=== PATIENT | male | born 1935 | race Asian ===

== ENCOUNTER 2019-03-09 01:45 | Inpatient (IN) | payer MEDICARE, MEDICAID ==
[~2019-03-09] VITALS: Ht 172.7 cm; Wt 66.8 kg
[2019-03-09] MEDS ORDERED: POTASSIUM CHLO20 ME3 PO (01:51)
[2019-03-09] MEDS ORDERED: ATORVASTATIN CA20 MG ORAL (01:51)
[2019-03-09] MEDS ORDERED: COLCRYS0.6 M1 PO (01:51)
[2019-03-09] MEDS ORDERED: LEVOCETIRIZINE D5 MG ORAL (01:51)
[2019-03-09] MEDS ORDERED: CLOPIDOGREL75 MG ORAL (01:51)
[2019-03-09] MEDS ORDERED: MONTELUKAST SOD10 MG ORAL (01:51)
[2019-03-09] MEDS ORDERED: FUROSEMIDE40 MG ORAL (01:51)
[2019-03-09] MEDS ORDERED: BENICAR40 MG ORAL (01:51)
[2019-03-09] MEDS ORDERED: FLOMAX0.4 MG ORAL (01:51)
[2019-03-09] MEDS ORDERED: LYRICA75 M1 ORAL (01:51)
[2019-03-09 01:55] VITALS: BP 128/75
--- NOTE | 2019-03-09 01:55 | NUR ---
ER Nurse Note: Pt COLIN from home c/o ALOC. 911 was called by daughter d/t change in status. Per daughter, pt was DC from [facility] for pnumonia on 03/06. Pt a&ox1 to name, VSS, on non-rebreather mask, O2 sat >92%. All safety measures met; will continue to montior.
[2019-03-09 02:22] LABS: HEMATOCRIT 43.7 % (42.0-52.0); HEMOGLOBIN 14.1 G/DL (14.2-18.0); MEAN CORPUSCULAR VOLUME 94 FL (80-99); PLATELET COUNT 260 K/UL (150-450); RED BLOOD COUNT 4.63 M/UL (4.70-6.10); RED CELL DISTRIBUTION WIDTH 13.9 % (11.6-14.8); WHITE BLOOD COUNT 13.7 K/UL (4.8-10.8)
[2019-03-09 02:34] LABS: ANION GAP 5 mmol/L (5-15); BLOOD UREA NITROGEN 32 mg/dL (7-18); CALCIUM 8.5 MG/DL (8.5-10.1); CARBON DIOXIDE 34 MMOL/L (21-32); CHLORIDE 98 MMOL/L (98-107); CREATININE 1.7 MG/DL (0.55-1.30); POTASSIUM 5.1 MMOL/L (3.5-5.1); SODIUM 137 MMOL/L (136-145)
[2019-03-09 02:35] LABS: INR 0.9 (0.9-1.1)
[2019-03-09 02:49] LABS: ALANINE AMINOTRANSFERASE 45 U/L (12-78); ALBUMIN 3.1 G/DL (3.4-5.0); ALBUMIN/GLOBULIN RATIO 0.9 (1.0-2.7); ALKALINE PHOSPHATASE 181 U/L (46-116); ASPARTATE AMINO TRANSFERASE 46 U/L (15-37); BILIRUBIN,TOTAL 0.4 MG/DL (0.2-1.0); CKMB 0.8 NG/ML (0.0-3.6); CREATINE KINASE 32 U/L (26-308)
[2019-03-09] MEDS ORDERED: cefTRIAXone 1 GM in NS 55 ML IVPB ONE (03:00)
--- NOTE | 2019-03-09 03:20 | NUR ---
ER Nurse Note: All orders completed per ERMD orders. Pt is resting, comfortable, no signs of distress. Pt on BiPaP, tolerating well. Pt denies SOB, n/v, dizziness. Mental status improving, able to make complete phrases. Pt cleaned, swabs collected. Family at bedside; daughter able to provide detailed information on pt status. All safety measures met; will continue to montior.
[2019-03-09] MEDS ORDERED: CODEINE-GUAIFE120 ML PO (03:29)
[2019-03-09] MEDS ORDERED: ZITHROMAX250 MG ORAL (03:30)
[2019-03-09] MEDS ORDERED: AUGMENTIN 875-1 EAC1 ORAL (03:30)
--- NOTE | 2019-03-09 03:50 | Emergency Room Report ---
History of Present Illness General Chief Complaint: Altered Level of Consciousness Source: Patient, Family Member, EMS Present Illness HPI Patient initially presents with reports of altered mental status Family reports that the patient was recently discharged home from another hospital They report diagnosis of pneumonia Earlier this evening prior to arrival patient had an episode where he appeared to be less responsive to the family His breathing appeared to be more abnormal and was brought in by paramedics Family at this time reports that the patient appears to be at his baseline mentation and his breathing appears to be improved patient himself complains of cramping to the left hand Denies any chest pain Denies any headache Allergies: Coded Allergies: No Known Allergies (Unverified , 03/09/19) Patient History Past Medical History: see triage record Pertinent Family History: none Reviewed Nursing Documentation: PMH: Agreed; PSxH: Agreed Nursing Documentation-PMH Past Medical History: No History, Except For Hx Hypertension: Yes Review of Systems All Other Systems: negative except mentioned in HPI Physical Exam Vital Signs Date Time Temp Pulse Resp B/P (MAP) Pulse Ox O2 Delivery O2 Flow Rate FiO2 03/09/19 01:43 97.0 99 18 128/75 (92) 96 Room Air 03/09/19 02:25 30 Sp02 EP Interpretation: reviewed, normal General Appearance: mild distress - Appears short of breath Head: normocephalic, atraumatic Eyes: bilateral eye PERRL, bilateral eye EOMI ENT: hearing grossly normal, normal pharynx, TMs + canals normal, uvula midline Neck: full range of motion, supple, no meningismus, no bony tend Respiratory: no retraction, no accessory muscle use, other - Mild distress tachypneic bilateral crackles Cardiovascular #1: normal peripheral pulses, regular rate, rhythm, no gallop, no JVD, no murmur Gastrointestinal: normal bowel sounds, non tender, soft, no mass, no organomegaly, non-distended, no guarding, no hernia, no pulsatile mass, no rebound Genitourinary: no CVA tenderness Musculoskeletal: other - Patient moving extremities equally equal dumper bilaterally Neurologic: oriented x3, responsive, motor strength/tone normal, sensory intact Psychiatric: mood/affect normal Skin: no rash, other - Edema bilateral lower extremity Lymphatic: normal inspection, no adenopathy Procedures Critical Care Time Critical Care Time 50 minutes for multiple re-evaluations initial critical presentation concern for respiratory failure not including any procedural time Medical Decision Making Diagnostic Impression: Primary Impression: Respiratory distress Additional Impression: CHF (congestive heart failure) ER Course Patient is a fairly complex patient with multiple differential to consideration including but not limited to cardiac cardiopulmonary and vascular emergencies Patient has done significantly better on BiPAP Chest x-ray reveals abnormal findings difficult to consider CHF versus infiltrate versus other Patient is afebrile However is treated aggressively upon arrival Patient does not meet criteria for thrombolytic therapy his mentation appears to be at baseline Per the family at this time Patient's stroke score is also low And given the rapid improvement does not meet criteria CT head does not show any acute disease Patient is critical however improved from initial arrival and will be admitted to higher level of care Labs Test 03/09/19 01:55 03/09/19 02:01 White Blood Count 13.7 K/UL (4.8-10.8) Red Blood Count 4.63 M/UL (4.70-6.10) Hemoglobin 14.1 G/DL (14.2-18.0) Hematocrit 43.7 % (42.0-52.0) Mean Corpuscular Volume 94 FL (80-99) Mean Corpuscular Hemoglobin 30.6 PG (27.0-31.0) Mean Corpuscular Hemoglobin Concent 32.4 G/DL (32.0-36.0) Red Cell Distribution Width 13.9 % (11.6-14.8) Platelet Count 260 K/UL (150-450) Mean Platelet Volume 7.5 FL (6.5-10.1) Neutrophils (%) (Auto) % (45.0-75.0) Lymphocytes (%) (Auto) % (20.0-45.0) Monocytes (%) (Auto) % (1.0-10.0) Eosinophils (%) (Auto) % (0.0-3.0) Basophils (%) (Auto) % (0.0-2.0) Prothrombin Time 9.9 SEC (9.30-11.50) Prothromb Time International Ratio 0.9 (0.9-1.1) Activated Partial Thromboplast Time 29 SEC (23-33) Sodium Level 137 MMOL/L (136-145) Potassium Level 5.1 MMOL/L (3.5-5.1) Chloride Level 98 MMOL/L (98-107) Carbon Dioxide Level 34 MMOL/L (21-32) Anion Gap 5 mmol/L (5-15) Blood Urea Nitrogen 32 mg/dL (7-18) Creatinine 1.7 MG/DL (0.55-1.30) Estimat Glomerular Filtration Rate mL/min (>60) Glucose Level 185 MG/DL (74-106) Lactic Acid Level 1.90 mmol/L (0.4-2.0) Calcium Level 8.5 MG/DL (8.5-10.1) Total Bilirubin 0.4 MG/DL (0.2-1.0) Aspartate Amino Transf (AST/SGOT) 46 U/L (15-37) Alanine Aminotransferase (ALT/SGPT) 45 U/L (12-78) Alkaline Phosphatase 181 U/L (46-116) Total Creatine Kinase 32 U/L (26-308) Creatine Kinase MB 0.8 NG/ML (0.0-3.6) Creatine Kinase MB Relative Index 2.5 Troponin I 0.079 ng/mL (0.000-0.056) Pro-B-Type Natriuretic Peptide 7047 pg/mL (0-125) Total Protein 6.7 G/DL (6.4-8.2) Albumin 3.1 G/DL (3.4-5.0) Globulin 3.6 g/dL Albumin/Globulin Ratio 0.9 (1.0-2.7) Lipase 84 U/L (73-393) Arterial Blood pH 7.252 (7.350-7.450) Arterial Blood Partial Pressure CO2 66.3 mmHg (35.0-45.0) Arterial Blood Partial Pressure O2 310.2 mmHg (75.0-100.0) Arterial Blood HCO3 28.6 mmol/L (22.0-26.0) Arterial Blood Oxygen Saturation 99.2 % (95-100) Arterial Blood Base Excess -0.1 (-2-2) Sharif Test Positive Rhythm Strip Diag. Results EP Interpretation: yes Rate: 88 Rhythm: NSR, no PVC's, no ectopy Chest X-Ray Diagnostic Results Chest X-Ray Diagnostic Results : Chest X-Ray Ordered: Yes # of Views/Limited/Complete: 1 View Indication: Shortness of Breath EP Interpretation: Yes Interpretation: no effusion, other - Bilateral patchy markings, right side worse than left consider infiltrate versus congestion Impression: Other - Bilateral patchy markings, consider infiltrate versus CHF Electronically Signed by: Sharan Mondragon DO CT/MRI/US Diagnostic Results CT/MRI/US Diagnostic Results : Impression CT headCT HEAD Without Contrast: Motion degraded study. Negative for mass, mass-effect or intracranial hemorrhage. Last Vital Signs Date Time Temp Pulse Resp B/P (MAP) Pulse Ox O2 Delivery O2 Flow Rate FiO2 03/09/19 02:25 105 22 100 Full Face 30 03/09/19 01:55 97.0 128/75 Status: improved Disposition: ADMITTED INPATIENT Condition: Critical Referrals: NON PHYSICIAN (PCP) Sharan Mondragon DO Mar 09, 2019 03:50
[2019-03-09 04:03] LABS: APPEARANCE,URINE CLEAR; BILIRUBIN, URINE NEGATIVE (NEGATIVE); COLOR,URINE PALE YELLOW; GLUCOSE, URINE (UA) NEGATIVE (NEGATIVE); KETONES,URINE NEGATIVE (NEGATIVE); LEUKOCYTE ESTERASE ,URINE NEGATIVE (NEGATIVE); NITRITE,URINE NEGATIVE (NEGATIVE); PH,URINE 5 (4.5-8.0); PROTEIN,URINE NEGATIVE (NEGATIVE); UROBILINOGEN,URINE NORMAL MG/DL (0.0-1.0)
[2019-03-09 04:09] VITALS: BP 122/76
[2019-03-09 04:15] VITALS: BP 152/86
--- NOTE | 2019-03-09 04:15 | NUR ---
NURSE NOTES: Patient arrived to SDU Room 239-2 via gurney under the care of DR. MCCAULEY. Accompanied by 2 ED staff members.Patient is awake alert orientedx4. on BiPAP / rate 12 FIO2 50% with full face mask. no leaks. o2 sating is 96-98% with no respiratory distress noted. ST with HR of 105 . Afebrile. BP 152/86. Denies any pain at this time.skin body assessment done. skin intact. Family at bed side. given hospital orientation.call light in reach. bed in low and locked. initiated safety precaution. will continue to monitor.
[2019-03-09 04:20] VITALS: BP 122/76
--- NOTE | 2019-03-09 04:20 | NUR ---
ER Nurse Note: Report given to NIKOLE Vargas in [place] for continuty of care. All orders completed per ERMD orders. Pt denies pain, VSS, a&ox3/4. No diffculty voiding, uses urinal at bedside, no skin breakdown. All belongings taken with family. Pt transfered with RT; BiPaP at pt side.
--- NOTE | 2019-03-09 07:50 | NUR ---
HAND-OFF: Report given to JOHANN SHAH RN. Stable on BiPAP.
[2019-03-09] MEDS: Lyrica 75mg cap ORAL SCH ×3 (09:00→21:20)
[2019-03-09] MEDS: Tamsulosin 0.4mg cap ORAL SCH (09:26)
[2019-03-09] MEDS: Heparin 5000 units/ml inj SUBQ SCH ×2 (09:29→21:18)
--- NOTE | 2019-03-09 10:34 | Diagnostic Imaging Report ---
Indications: Altered mental status for one day Technique: Spiral acquisitions obtained through the brain. Angled axial and coronal 5 x 5 mm slices were reconstructed. Total dose length product 1583.7 mGycm. CTDI vol(s) 70.38 mGy. Dose reduction achieved using automated exposure control Comparison: None. Findings: There is age-related enlargement of the ventricles and extra axial CSF spaces. No acute intracranial hemorrhage nor edema. No mass effect nor midline shift. There is evidence of an old cortical infarct in the right frontal region. This has an associated dystrophic calcification The visualized orbits are unremarkable. The calvarium is intact. There is minimal right frontal sinus disease. There is a left maxillary sinus air-fluid level. The mastoids are clear. 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 The CT scanner at [facility] is accredited by the [employer] and the scans are performed using protocols designed to limit radiation exposure to as low as reasonably achievable to attain images of sufficient resolution adequate for diagnostic evaluation.
[2019-03-09] MEDS: guaiFENesin 100mg/5ml Liq ud ORAL PRN (11:17)
--- NOTE | 2019-03-09 13:01 | Diagnostic Imaging Report ---
Indication: Shortness of breath for one day Technique: One view of the chest Comparison: none Findings: There is extensive interstitial and airspace disease on the right, and somewhat less extensive interstitial disease throughout the left lung. Pleural calcifications are seen on the right. There is blunting of the bilateral costophrenic sulci, right greater than left. The heart is enlarged. The aorta is tortuous and quite ectatic, possibly aneurysmal Impression: Bilateral right greater than left interstitial and airspace infiltrates versus edema. Bilateral costophrenic angle blunting, could indicate pleural effusions Chronic appearing right-sided pleural calcifications. 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
--- NOTE | 2019-03-09 13:04 | NUR ---
CASE MANAGEMENT:REVIEW 83 YR OLD FEMALE BIBA FROM HOME CC: ALOC. SOB PMH: RECENTLY DISCHARGED FROM [facility] ER FOR PNA SI:ALOC. RESPIRATORY DISTRESS. SEPSIS 97.0 99 18 128/75 92% ON NON REBREATHER WBC+13.7 TROPONIN(+) 0.079 PH-7.252 PCO2+66.3 IS: PLACED ON BIPAP IV LASIX IV ROCEPHIN CT HEAD CXR : TO STEP DOWN UNIT INTERQUAL CRITERIA MET
[2019-03-09 16:00] VITALS: BP 110/64
--- NOTE | 2019-03-09 16:00 | NUR ---
NURSE NOTES: received pt from Sharon RN, awake, alert, oriented, vital signs stable, no co pain, no SOB, Bipap 12/5, FIO2 30%, skin warm and dry to touch, intact, at bedside, bed in low position, call light within reach.
[2019-03-09] MEDS: Montelukast 10mg tablet ORAL SCH (17:19)
--- NOTE | 2019-03-09 18:35 | NUR ---
RESPIRATORY NOTE: Received pt on 4L NC. Bedside RN just called to place back pt on BiPAP. Pt now back on BiPAP 07/30, backup rate 12, 35%. Pt placed on a Full Face mask, skin intact, no redness/breakdowns noted. Foam tape applied on pt's forehead/cheeks/chin to prevent mask irritations. Pt is alert/awake, follows commands. Family at bedside. B/S drake. rhonchi/diminished, nonproductive cough. BiPAP plugged into red outlet, alarms on & audible. Pt in no apparent distress at this time. Will continue plan of care.
--- NOTE | 2019-03-09 19:21 | NUR ---
HAND-OFF: Report given to ANDRIY AGUSTIN.
--- NOTE | 2019-03-09 19:30 | NUR ---
NURSE NOTES: Received Pt is resting on the bed and slight agitated and forgetful. Family stay at bedside. Pt trying to remove BiPAP. Remind Pt do not remove BIPAP and to use call light for help. But pt didn't cooperate at this time. Addendum: 03/10/19 at 0029 by NADEGE ASHRAF RN RN On BiPAP 16/6 and FiO2 35% and SaO2 99% noted. IV site intact and no sign of infiltration noted. On Tele monitor with SR. Placed fall precaution. Will continue to care plan.
[2019-03-09 20:00] VITALS: BP 153/81
[2019-03-10] VITALS: BP 117/70
--- NOTE | 2019-03-10 03:45 | History and Physical Report ---
DATE OF ADMISSION: 03/09/2019 CHIEF COMPLAINT: Respiratory failure, CHF. HISTORY OF PRESENT ILLNESS: The patient is an 83-year-old female. She has a history of congestive heart failure, hypertension, hyperlipidemia, and gout. She presented from home with complaints of shortness of breath. The patient apparently recently hospitalized in an outside hospital for pneumonia. In the emergency room, she was in respiratory distress and eventually placed on a BiPAP. She had x-ray evidence of CHF on x-ray. ABG showed respiratory acidosis. She also had an elevated troponin of 0.079 and natriuretic peptide level was 7000. She has been currently continued on BiPAP. She has received a dose of Lasix and is now admitted for further evaluation and care. PAST MEDICAL HISTORY: As above. PAST SURGICAL HISTORY: Unknown. CURRENT MEDICATIONS: Reconciled and reviewed. ALLERGIES: None. FAMILY HISTORY: Unknown. SOCIAL HISTORY: There is no known history of tobacco, ethanol, or drugs. REVIEW OF SYSTEMS: Unobtainable as the patient is confused. PHYSICAL EXAMINATION: VITAL SIGNS: Temperature 98, pulse 90, respirations 16, and blood pressure 122/76. GENERAL: The patient is well developed, in no apparent distress. HEART: Regular rate and rhythm. LUNGS: Significant diminished breath sounds bilaterally. ABDOMEN: Soft, nontender, and nondistended. EXTREMITIES: Without clubbing, cyanosis, or edema. LABORATORY DATA: White count 13, hemoglobin 14, hematocrit 43, and platelet count of 260. Coags are normal. Sodium 137, potassium 5, chloride 98, bicarb 34, BUN 32, and creatinine 0.7. Troponin was 0.079. Natriuretic peptide level was 7000. According to the ER, x-ray shows CHF. ASSESSMENT: This is an 83-year-old female with a history of hypertension, recent pneumonia and hyperlipidemia, admitted with complaints of shortness of breath secondary to congestive heart failure exacerbation, cannot rule out possible underlying pneumonia. PLAN: IV diuretic therapy. Close monitoring of renal function and electrolytes. Empiric antibiotic therapy to cover for pneumonia. Pulmonary and Cardiology consultations will be obtained. Maintain BiPAP, wean as able. Otherwise, continue outpatient cardiac regimen. We will trend the patient's troponin and check an echo. Luis Forrester M.D. DR: DIANA JOB#: [id number] CC:
[2019-03-10 04:00] VITALS: BP 128/66
[2019-03-10] MEDS: Lyrica 75mg cap ORAL SCH ×3 (05:41→22:00)
[2019-03-10 06:27] LABS: ALANINE AMINOTRANSFERASE 34 U/L (12-78); ALBUMIN 2.6 G/DL (3.4-5.0); ALBUMIN/GLOBULIN RATIO 0.8 (1.0-2.7); ALKALINE PHOSPHATASE 138 U/L (46-116); ANION GAP 6 mmol/L (5-15); ASPARTATE AMINO TRANSFERASE 31 U/L (15-37); BILIRUBIN,TOTAL 0.5 MG/DL (0.2-1.0); BLOOD UREA NITROGEN 30 mg/dL (7-18); CALCIUM 8.4 MG/DL (8.5-10.1); CARBON DIOXIDE 35 MMOL/L (21-32); CHLORIDE 98 MMOL/L (98-107); CREATININE 1.3 MG/DL (0.55-1.30); POTASSIUM 3.7 MMOL/L (3.5-5.1); SODIUM 139 MMOL/L (136-145)
--- NOTE | 2019-03-10 06:34 | NUR ---
RESPIRATORY NOTE: Received pt on Bipap 07/30, back up rate 12-35% FiO2. Pt is tolerating well with the Bipap. Pt is awake, alert, resting comfortably in the bed, no SOB or resp distress noted.No redness or skin breakdown noted. Foam tapes on cheeks, chin and forehead. Family member at bed side. Alarms are set and audible, Bipap is plugged into the red outlet, ambu bag is at bedside. Will continue to monitor pt.
--- NOTE | 2019-03-10 07:20 | NUR ---
HAND-OFF: Report given to NIKOLE Mann. Pt is resting on the bed and no sign of acute distress noted.
[2019-03-10 08:00] VITALS: BP 155/79
[2019-03-10] MEDS: Heparin 5000 units/ml inj SUBQ SCH ×2 (08:15→20:38)
[2019-03-10] MEDS: Tamsulosin 0.4mg cap ORAL SCH (08:15)
--- NOTE | 2019-03-10 08:15 | NUR ---
NURSE NOTES: received pt in the bed, awake, alert,vital signs stable, pt on Bipap 12/, FIO2 30%, no SOB, skin warm and dry to touch, intact, yellow clear urine, tolerate diet well, at bedside, bed in low position, call light within reach.
--- NOTE | 2019-03-10 08:35 | Consultation ---
Consult Note Consult Note 83-year-old female presents with increase in shortness of breath. The patient apparently recently hospitalized in an outside hospital for pneumonia and respiratory distress. She was in respiratory distress and placed on a BiPAP. CXR suggestive of CHF and pulmonary edema. Patient with acute respiratory acidosis. She also had an elevated troponin of 0.079 and natriuretic peptide level was 7000. Patient admitted and started on diuresis. I was called to assist with pulmonary care and BIPAP management. PAST MEDICAL HISTORY: congestive heart failure, hypertension, hyperlipidemia, and gout PAST SURGICAL HISTORY: Unknown. CURRENT MEDICATIONS: Reconciled and reviewed. ALLERGIES: reviewed. FAMILY HISTORY: Unknown. SOCIAL HISTORY: There is no known history of tobacco, ethanol, or drugs. SNF patient REVIEW OF SYSTEMS: Unable PHYSICAL EXAMINATION: NAD on oxygen GENERAL: The patient is well developed, in no apparent distress. HEART: Regular rate and rhythm. without MRG LUNGS: reduced breath sounds bilaterally. some rhonchi ABDOMEN: Soft, nontender, and nondistended. no HSM EXTREMITIES: Without clubbing, cyanosis, or edema. NEURO: nonfocal and confused Labs Test 03/09/19 01:55 03/09/19 02:01 03/09/19 03:00 03/09/19 03:55 White Blood Count 13.7 K/UL (4.8-10.8) Red Blood Count 4.63 M/UL (4.70-6.10) Hemoglobin 14.1 G/DL (14.2-18.0) Hematocrit 43.7 % (42.0-52.0) Mean Corpuscular Volume 94 FL (80-99) Mean Corpuscular Hemoglobin 30.6 PG (27.0-31.0) Mean Corpuscular Hemoglobin Concent 32.4 G/DL (32.0-36.0) Red Cell Distribution Width 13.9 % (11.6-14.8) Platelet Count 260 K/UL (150-450) Mean Platelet Volume 7.5 FL (6.5-10.1) Neutrophils (%) (Auto) % (45.0-75.0) Lymphocytes (%) (Auto) % (20.0-45.0) Monocytes (%) (Auto) % (1.0-10.0) Eosinophils (%) (Auto) % (0.0-3.0) Basophils (%) (Auto) % (0.0-2.0) Prothrombin Time 9.9 SEC (9.30-11.50) Prothromb Time International Ratio 0.9 (0.9-1.1) Activated Partial Thromboplast Time 29 SEC (23-33) Sodium Level 137 MMOL/L (136-145) Potassium Level 5.1 MMOL/L (3.5-5.1) Chloride Level 98 MMOL/L (98-107) Carbon Dioxide Level 34 MMOL/L (21-32) Anion Gap 5 mmol/L (5-15) Blood Urea Nitrogen 32 mg/dL (7-18) Creatinine 1.7 MG/DL (0.55-1.30) Estimat Glomerular Filtration Rate mL/min (>60) Glucose Level 185 MG/DL (74-106) Lactic Acid Level 1.90 mmol/L (0.4-2.0) Calcium Level 8.5 MG/DL (8.5-10.1) Total Bilirubin 0.4 MG/DL (0.2-1.0) Aspartate Amino Transf (AST/SGOT) 46 U/L (15-37) Alanine Aminotransferase (ALT/SGPT) 45 U/L (12-78) Alkaline Phosphatase 181 U/L (46-116) Total Creatine Kinase 32 U/L (26-308) Creatine Kinase MB 0.8 NG/ML (0.0-3.6) Creatine Kinase MB Relative Index 2.5 Troponin I 0.079 ng/mL (0.000-0.056) Pro-B-Type Natriuretic Peptide 7047 pg/mL (0-125) Total Protein 6.7 G/DL (6.4-8.2) Albumin 3.1 G/DL (3.4-5.0) Globulin 3.6 g/dL Albumin/Globulin Ratio 0.9 (1.0-2.7) Lipase 84 U/L (73-393) Arterial Blood pH 7.252 (7.350-7.450) 7.342 (7.350-7.450) Arterial Blood Partial Pressure CO2 66.3 mmHg (35.0-45.0) 53.7 mmHg (35.0-45.0) Arterial Blood Partial Pressure O2 310.2 mmHg (75.0-100.0) 65.9 mmHg (75.0-100.0) Arterial Blood HCO3 28.6 mmol/L (22.0-26.0) 28.5 mmol/L (22.0-26.0) Arterial Blood Oxygen Saturation 99.2 % (95-100) 90.8 % (95-100) Arterial Blood Base Excess -0.1 (-2-2) 1.7 (-2-2) Sharif Test Positive Positive Urine Color Pale yellow Urine Appearance Clear Urine pH 5 (4.5-8.0) Urine Specific Levan 1.015 (1.005-1.035) Urine Protein Negative (NEGATIVE) Urine Glucose (UA) Negative (NEGATIVE) Urine Ketones Negative (NEGATIVE) Urine Blood Negative (NEGATIVE) Urine Nitrite Negative (NEGATIVE) Urine Bilirubin Negative (NEGATIVE) Urine Urobilinogen Normal MG/DL (0.0-1.0) Urine Leukocyte Esterase Negative (NEGATIVE) Test 03/09/19 07:39 03/09/19 08:40 03/10/19 03:50 Arterial Blood pH 7.287 (7.350-7.450) 7.356 (7.350-7.450) Arterial Blood Partial Pressure CO2 58.9 mmHg (35.0-45.0) 47.9 mmHg (35.0-45.0) Arterial Blood Partial Pressure O2 147.5 mmHg (75.0-100.0) 81.9 mmHg (75.0-100.0) Arterial Blood HCO3 27.5 mmol/L (22.0-26.0) 26.2 mmol/L (22.0-26.0) Arterial Blood Oxygen Saturation 98.1 % (95-100) 94.7 % (95-100) Arterial Blood Base Excess -0.2 (-2-2) 0.2 (-2-2) Sharif Test Positive Positive Sodium Level 139 MMOL/L (136-145) Potassium Level 3.7 MMOL/L (3.5-5.1) Chloride Level 98 MMOL/L (98-107) Carbon Dioxide Level 35 MMOL/L (21-32) Anion Gap 6 mmol/L (5-15) Blood Urea Nitrogen 30 mg/dL (7-18) Creatinine 1.3 MG/DL (0.55-1.30) Estimat Glomerular Filtration Rate mL/min (>60) Glucose Level 89 MG/DL (74-106) Calcium Level 8.4 MG/DL (8.5-10.1) Total Bilirubin 0.5 MG/DL (0.2-1.0) Aspartate Amino Transf (AST/SGOT) 31 U/L (15-37) Alanine Aminotransferase (ALT/SGPT) 34 U/L (12-78) Alkaline Phosphatase 138 U/L (46-116) Total Protein 5.8 G/DL (6.4-8.2) Albumin 2.6 G/DL (3.4-5.0) Globulin 3.2 g/dL Albumin/Globulin Ratio 0.8 (1.0-2.7) ASSESSMENT: hypertension, ho pneumonia hyperlipidemia, congestive heart failure exacerbation respiratory failure, acute toxic metabolic encephalopathy hypoxemia pleural calcifications PLAN care as is diurese oxygen BIPAP and assess off repeat ABG repeat CXR hold on antibiotics aspiration precautions impression, plan, and exam edited and reviewed in detail care discussed with Adrian Akers MD Mar 10, 2019 08:35
--- NOTE | 2019-03-10 08:40 | NUR ---
RESPIRATORY NOTE: Pt off Bipap to eat breakfast per NIKOLE Mercer. Pt is on 3L 32%FiO2, saturates at 95%. Pt is stable, no SOB or resp distress noted. Per Dr. Saleem, Bipap changed to prn, and keep pt on 3L NC 32% FiO2. NIKOLE Mercer made aware. Will follow up with the order and continue to monitor pt.
--- NOTE | 2019-03-10 09:26 | NUR ---
RESPIRATORY NOTE: Put pt back on Bipap due to high PCO2 in ABG result. New foam tapes applied. Pt wants full face mask. No redness noted upon applying tape to pt's chin, cheeks and fore head.Family member at bedside. Pt is stable, no SOB or resp distress. Will continue to monitor pt. Addendum: 03/10/19 at 0931 by Jessenia Lehman RT NIKOLE Mann made aware
[2019-03-10 12:00] VITALS: BP 118/70
--- NOTE | 2019-03-10 12:47 | Diagnostic Imaging Report ---
Indication: Shortness of breath Technique: One view of the chest Comparison: 03/09/2019 Findings: Right lung interstitial and airspace disease, predominantly in the mid and upper lung, appears unchanged. Pleural calcifications on the right are unchanged. Right-sided costophrenic angle blunting is unchanged. Mild interstitial changes on the left appears stable. There is some atelectasis or scarring at the left lung base. The heart remains borderline enlarged. The aorta is tortuous and ectatic, possibly aneurysmal Impression: Unchanged, over one day, findings as above.
--- NOTE | 2019-03-10 14:00 | NUR ---
NURSE NOTES: pt up on chair, o2 3L, tolerate well, Bipap now PRN, vital signs stable, continue monitoring.
[2019-03-10 16:00] VITALS: BP 132/72
--- NOTE | 2019-03-10 16:58 | General Progress Note ---
Assessment/Plan Problem List: (1) Hospital acquired PNA ICD Codes: J18.9 - Pneumonia, unspecified organism; Y95 - Nosocomial condition SNOMED: 342959819 (2) CHF (congestive heart failure), NYHA class IV ICD Codes: I50.9 - Heart failure, unspecified SNOMED: 646613856, 057151123 (3) Sepsis ICD Codes: A41.9 - Sepsis, unspecified organism SNOMED: 46226660 (4) Respiratory distress ICD Codes: R06.03 - Acute respiratory distress SNOMED: 739616028 (5) Altered level of consciousness ICD Codes: R40.4 - Transient alteration of awareness SNOMED: 7073937 Status: stable, progressing Assessment/Plan: a/ chf pna sepsis p/ iv lasix to po iv abx follow up cultures monitor cxr Subjective ROS Limited/Unobtainable: No Constitutional: Reports: malaise, weakness HEENT: Reports: no symptoms Cardiovascular: Reports: no symptoms Respiratory: Reports: cough, shortness of breath Gastrointestinal/Abdominal: Reports: no symptoms Genitourinary: Reports: no symptoms Neurologic/Psychiatric: Reports: no symptoms Endocrine: Reports: no symptoms Hematologic/Lymphatic: Reports: no symptoms Allergies: Coded Allergies: No Known Allergies (Unverified , 03/09/19) All Systems: reviewed and negative except above Subjective no events. off bipap eating breakfast. no fevers or chills. Objective Last 24 Hour Vital Signs Date Time Temp Pulse Resp B/P (MAP) Pulse Ox O2 Delivery O2 Flow Rate FiO2 03/10/19 16:00 80 03/10/19 16:00 Bi-pap 03/10/19 14:09 99.4 03/10/19 12:00 82 03/10/19 12:00 99.4 83 19 118/70 (86) 97 03/10/19 12:00 Bi-pap 03/10/19 12:00 35 03/10/19 11:03 86 22 95 03/10/19 10:42 85 23 96 Full Face 35 03/10/19 09:26 86 15 96 Full Face 35 03/10/19 08:40 87 18 95 03/10/19 08:00 35 03/10/19 08:00 98.8 91 18 155/79 (104) 96 03/10/19 08:00 Bi-pap 03/10/19 08:00 84 03/10/19 06:31 79 16 95 Full Face 35 03/10/19 05:04 88 24 97 Full Face 35 03/10/19 04:00 98.0 87 19 128/66 (86) 97 03/10/19 04:00 Bi-pap 03/10/19 04:00 35 03/10/19 04:00 83 03/10/19 03:15 80 19 96 Full Face 35 03/10/19 00:57 95 21 98 Full Face 35 03/10/19 00:00 Bi-pap 03/10/19 00:00 35 03/10/19 00:00 98.4 87 19 117/70 (86) 98 03/10/19 00:00 85 03/09/19 23:03 90 19 97 Full Face 35 03/09/19 20:55 91 24 98 Full Face 35 03/09/19 20:00 98.0 95 19 153/81 (105) 97 03/09/19 20:00 35 03/09/19 20:00 Bi-pap 03/09/19 19:48 95 03/09/19 18:32 89 19 94 Full Face 35 03/09/19 16:56 87 17 95 Full Face 35 Intake and Output 03/09/19 03/10/19 19:00 07:00 Intake Total 800 ml 120 ml Output Total 751 ml 1600 ml Balance 49 ml -1480 ml Intake Oral 800 ml 120 ml Output Urine Total 750 ml 1600 ml Stool Total 1 ml # Voids 2 Laboratory Tests 03/10/19 03:50: Sodium Level 139, Potassium Level 3.7, Chloride Level 98, Carbon Dioxide Level 35H, Anion Gap 6, Blood Urea Nitrogen 30H, Creatinine 1.3, Estimat Glomerular Filtration Rate , Glucose Level 89, Calcium Level 8.4L, Total Bilirubin 0.5, Aspartate Amino Transf (AST/SGOT) 31, Alanine Aminotransferase (ALT/SGPT) 34, Alkaline Phosphatase 138H, Total Protein 5.8L, Albumin 2.6L, Globulin 3.2, Albumin/Globulin Ratio 0.8L 03/10/19 09:00: Arterial Blood pH 7.427, Arterial Blood Partial Pressure CO2 54.6H, Arterial Blood Partial Pressure O2 70.9L, Arterial Blood HCO3 35.2H, Arterial Blood Oxygen Saturation 93.4L, Arterial Blood Base Excess 8.9H, Sharif Test Positive Height (Feet): 5 Height (Inches): 8.00 Weight (Pounds): 171 General Appearance: WD/WN, alert Neck: supple Cardiovascular: normal rate, regular rhythm Respiratory/Chest: chest wall non-tender, lungs clear, normal breath sounds, no respiratory distress, no accessory muscle use Abdomen: normal bowel sounds, non tender, soft, no organomegaly, no mass Edema: no edema noted Arm (L), no edema noted Arm (R), no edema noted Leg (L), no edema noted Leg (R), no edema noted Pedal (L), no edema noted Pedal (R), no edema noted Generalized 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
[2019-03-10] MEDS ORDERED: NS 275ml ONE (17:30)
[2019-03-10] MEDS ORDERED: Tubing IV Secondary IV ONE (17:30)
[2019-03-10] MEDS: Montelukast 10mg tablet ORAL SCH (17:32)
[2019-03-10] MEDS ORDERED: Vancomycin 1.25gm Premix IVPB ONE (18:00)
[2019-03-10] MEDS: Piperacillin/Tazobactam 3.375 GM in NS 110 ML IVPB SCH (18:14)
[2019-03-10] MEDS ORDERED: CREON DR 36,001 EACH PO (18:32)
[2019-03-10] MEDS ORDERED: DEEP SEA44 ML NS (18:35)
[2019-03-10] MEDS ORDERED: COMBIVENT RESPIM4 GM IH (18:38)
[2019-03-10] MEDS ORDERED: FLECTOR1 EACH TP (18:41)
[2019-03-10] MEDS ORDERED: FLUTICASONE PRO16 G1 NS (18:43)
[2019-03-10] MEDS ORDERED: PROMETHAZINE-C118 M1 ORAL (18:45)
[2019-03-10] MEDS ORDERED: CIALIS5 MG PO (18:46)
--- NOTE | 2019-03-10 19:21 | NUR ---
HAND-OFF: Report given to CHIKA AGUSTIN.
--- NOTE | 2019-03-10 19:22 | NUR ---
NURSE NOTES: Received patient from Mackenzie Macias RN, Patient is awake, alert, on NC 3L, VSS, and no acute distress. Family member, Young, at bed side. Bed at its lowest position, call light in reach and X3 bed rails are up.
[2019-03-10 20:00] VITALS: BP 123/65
[2019-03-11] VITALS: BP 126/70
--- NOTE | 2019-03-11 | NUR ---
NURSE NOTES: Patient sleeping well with family at bedside. Will continue to monitor.
[2019-03-11 04:00] VITALS: BP 133/73
--- NOTE | 2019-03-11 04:10 | NUR ---
NURSE NOTES: Marcial from Lab informed me that patient has active VRE rectum. Will inform MD in the AM and endorse to morning nurse.
[2019-03-11] MEDS: Piperacillin/Tazobactam 3.375 GM in NS 110 ML IVPB SCH ×3 (05:06→21:15)
[2019-03-11] MEDS: Vancomycin 750mg/NS 275ml IVPB SCH ×4 (05:06→17:15)
[2019-03-11] MEDS: Lyrica 75mg cap ORAL SCH ×3 (05:07→21:21)
[2019-03-11 05:34] LABS: ANION GAP 4 mmol/L (5-15); BLOOD UREA NITROGEN 28 mg/dL (7-18); CALCIUM 8.7 MG/DL (8.5-10.1); CARBON DIOXIDE 35 MMOL/L (21-32); CHLORIDE 98 MMOL/L (98-107); CREATININE 1.1 MG/DL (0.55-1.30); POTASSIUM 3.4 MMOL/L (3.5-5.1); SODIUM 137 MMOL/L (136-145)
--- NOTE | 2019-03-11 07:20 | NUR ---
HAND-OFF: Report given to Mackenzie Macias RN.
--- NOTE | 2019-03-11 07:58 | General Progress Note ---
Assessment/Plan Problem List: (1) Hospital acquired PNA ICD Codes: J18.9 - Pneumonia, unspecified organism; Y95 - Nosocomial condition SNOMED: 632667786 (2) CHF (congestive heart failure), NYHA class IV ICD Codes: I50.9 - Heart failure, unspecified SNOMED: 168006448, 409857758 (3) Sepsis ICD Codes: A41.9 - Sepsis, unspecified organism SNOMED: 11089039 (4) Respiratory distress ICD Codes: R06.03 - Acute respiratory distress SNOMED: 310920611 (5) Altered level of consciousness ICD Codes: R40.4 - Transient alteration of awareness SNOMED: 5499052 Status: stable, progressing Assessment/Plan: a/ chf pna sepsis p/ lasix iv abx follow up cultures monitor cxr replace k d/w Subjective ROS Limited/Unobtainable: No Constitutional: Reports: malaise, weakness HEENT: Reports: no symptoms Cardiovascular: Reports: no symptoms Respiratory: Reports: cough, shortness of breath Gastrointestinal/Abdominal: Reports: no symptoms Genitourinary: Reports: no symptoms Neurologic/Psychiatric: Reports: no symptoms Endocrine: Reports: no symptoms Hematologic/Lymphatic: Reports: no symptoms Allergies: Coded Allergies: No Known Allergies (Unverified , 03/09/19) All Systems: reviewed and negative except above Subjective no events. off bipap currently. at the bedside. feels pt is doing better. Objective Last 24 Hour Vital Signs Date Time Temp Pulse Resp B/P (MAP) Pulse Ox O2 Delivery O2 Flow Rate FiO2 03/11/19 04:00 98.5 82 20 133/73 (93) 98 03/11/19 04:00 Nasal Cannula 3.0 03/11/19 03:31 79 03/11/19 00:00 Nasal Cannula 3.0 03/11/19 00:00 99.0 83 20 126/70 (88) 97 03/10/19 23:20 79 03/10/19 21:12 97 Nasal Cannula 3.0 32 03/10/19 20:00 98.5 84 20 123/65 (84) 98 03/10/19 20:00 89 03/10/19 20:00 Nasal Cannula 3.0 03/10/19 16:00 80 03/10/19 16:00 Bi-pap 03/10/19 16:00 98.8 84 19 132/72 (92) 99 03/10/19 14:09 99.4 03/10/19 13:00 97 Nasal Cannula 3.0 03/10/19 12:00 82 03/10/19 12:00 99.4 83 19 118/70 (86) 97 03/10/19 12:00 Bi-pap 03/10/19 12:00 35 03/10/19 11:03 86 22 95 03/10/19 10:42 85 23 96 Full Face 35 03/10/19 09:26 86 15 96 Full Face 35 03/10/19 08:40 87 18 95 03/10/19 08:00 35 03/10/19 08:00 98.8 91 18 155/79 (104) 96 03/10/19 08:00 Bi-pap 03/10/19 08:00 84 Intake and Output 03/10/19 03/11/19 19:00 07:00 Intake Total 320 ml 377.2500 ml Output Total 300 ml 500 ml Balance 20 ml -122.7500 ml Intake Oral 320 ml 50 ml IV Total 327.2500 ml Output Urine Total 300 ml 500 ml # Voids 3 4 # Bowel Movements 1 5 Laboratory Tests 03/10/19 09:00: Arterial Blood pH 7.427, Arterial Blood Partial Pressure CO2 54.6H, Arterial Blood Partial Pressure O2 70.9L, Arterial Blood HCO3 35.2H, Arterial Blood Oxygen Saturation 93.4L, Arterial Blood Base Excess 8.9H, Sharif Test Positive 03/11/19 03:15: Sodium Level 137, Potassium Level 3.4L, Chloride Level 98, Carbon Dioxide Level 35H, Anion Gap 4L, Blood Urea Nitrogen 28H, Creatinine 1.1, Estimat Glomerular Filtration Rate , Glucose Level 97, Calcium Level 8.7 Height (Feet): 5 Height (Inches): 8.00 Weight (Pounds): 163 Objective General Appearance: WD/WN, alert Neck: supple Cardiovascular: normal rate, regular rhythm Respiratory/Chest: chest wall non-tender, lungs clear, normal breath sounds, no respiratory distress, no accessory muscle use Abdomen: normal bowel sounds, non tender, soft, no organomegaly, no mass Edema: no edema noted Arm (L), no edema noted Arm (R), no edema noted Leg (L), no edema noted Leg (R), no edema noted Pedal (L), no edema noted Pedal (R), no edema noted Generalized Neurologic: group burner 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
[2019-03-11 08:00] VITALS: BP 131/66
--- NOTE | 2019-03-11 08:10 | NUR ---
NURSE NOTES: received pt in the bed, awake, alert, oriented, vital signs stable, no co pain, no SOB, o2 3l via nasal canula,tolerate well, skin warm and dry to touch, intact, ambulate, at bedside, K 3.4, dr. Forrester aware, bed in low position, call light within reach.
[2019-03-11] MEDS: Tamsulosin 0.4mg cap ORAL SCH (09:05)
[2019-03-11] MEDS: Furosemide 40mg tab ORAL SCH (09:05)
[2019-03-11] MEDS: Heparin 5000 units/ml inj SUBQ SCH ×2 (09:07→21:14)
[2019-03-11 12:00] VITALS: BP 127/68
--- NOTE | 2019-03-11 12:00 | NUR ---
NURSE NOTES: no any distress, vital signs stable, no SOB, continue monitoring.
[2019-03-11] MEDS ORDERED: Tubing IV Secondary IV ONE (15:37)
[2019-03-11] MEDS ORDERED: NS 275ml ONE (15:37)
[2019-03-11 16:00] VITALS: BP 128/73
[2019-03-11] MEDS: Montelukast 10mg tablet ORAL SCH (17:15)
--- NOTE | 2019-03-11 18:00 | Consultation ---
DATE OF CONSULTATION: 03/11/2019 INFECTIOUS DISEASES CONSULTATION CONSULTING PHYSICIAN: Mena Mena M.D. REFERRING PHYSICIAN: Luis Forresetr M.D. REASON FOR CONSULTATION: Pneumonia. HISTORY OF PRESENTING ILLNESS: This is a 83-year-old gentleman with history of congestive heart failure, hypertension, hyperlipidemia, gout, who comes in with shortness of breath. He was at an outside hospital where he was found to be in respiratory distress and was placed on a BiPAP. He had congestive heart failure on the chest x-ray. An Infectious Diseases consultation has now been obtained for possible pneumonia. PAST MEDICAL HISTORY: 1. History of congestive heart failure. 2. Hypertension. 3. Hyperlipidemia. 4. Gout. SOCIAL HISTORY: No history of smoking, alcohol, or drug use. FAMILY HISTORY: Unknown. REVIEW OF SYSTEMS: Unable to obtain currently. MEDICATIONS: As an inpatient, the patient is on Lasix, IV vancomycin, Zosyn, atorvastatin, Restoril, Singulair, guaifenesin, subcutaneous heparin, Plavix, Lyrica, Flomax, clonidine. ALLERGIES: No known drug allergies. PHYSICAL EXAMINATION: VITAL SIGNS: Temperature of 97.7, T-max of 99.4, pulse of 76, respiratory rate 20, blood pressure 131/66, O2 saturation of 98%. HEENT: Pupils equally reactive to light and accommodation. Mouth appears clean without thrush. NECK: Supple. No adenopathy. No JVD. CARDIOVASCULAR: Regular rate and rhythm. No murmurs. LUNGS: Clear to auscultation bilaterally. No crackles. No wheezes. ABDOMEN: Soft and nontender. No organomegaly. EXTREMITIES: No cyanosis, no clubbing, no edema. LABORATORY AND DIAGNOSTIC DATA: White count of 13.7, hemoglobin 14.1, hematocrit 43.7, MCV 94, platelet count of 260. Sodium 137, potassium 3.4, chloride 98, bicarb 35, BUN 28, creatinine 1.1, glucose 97, calcium 8.7, creatinine is 1.7 on 03/09/2019. Total bilirubin 0.5, AST 31, ALT 34, alkaline phosphatase 138, total protein 5.8, albumin 2.6, lipase of 84. UA is showing LE negative. 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 Nasal swab was negative for MRSA. Blood cultures are negative so far. Chest x-ray showing right lung interstitial and air space disease, prominent in the mid and upper lung, some atelectasis in the left lung base noted, chronic right frontal cortical infarct, negative for bleed or mass effect, sinus disease noted. ASSESSMENT: This is an 83-year-old gentleman with history congestive heart failure, hypertension, gout who comes in with shortness of breath and is found to have. 1. Possible aspiration pneumonia. 2. Hypertension. 3. Renal failure is improving. 4. Congestive heart failure. PLAN: 1. Continue IV vancomycin and Zosyn. 2. We will order sputum for Gram stain and culture. 3. We will follow up cultures and adjust antibiotics accordingly. I would like to thank, Dr. Forrester for this consultation. Mena Mena M.D. DR: Amina JOB#: [id number] CC: Luis Forrester M.D.
--- NOTE | 2019-03-11 19:08 | NUR ---
HAND-OFF: Report given to CAROLINA AGUSTIN.
--- NOTE | 2019-03-11 19:10 | NUR ---
NURSE NOTES: Report received from Mackenzie Mercer RN. Observed pt lying in the bed. A/O x4, speaks Tajik, denies any pain. SR with classroom monitor. On 3L with no SOB noted. IV on L AC, intact and patent. Bed in the lowest position. Side rails up x3. Call light within reach. Will continue to monitor.
[2019-03-11 20:00] VITALS: BP 136/71
--- NOTE | 2019-03-11 23:12 | Pulmonology Progress Note ---
Assessment/Plan Assessment/Plan Pulmonary Progress Note 83-year-old female presents with increase in shortness of breath. The patient apparently recently hospitalized in an outside hospital for pneumonia and respiratory distress. She was in respiratory distress and placed on a BiPAP. CXR suggestive of CHF and pulmonary edema. Patient with acute respiratory acidosis. She also had an elevated troponin of 0.079 and natriuretic peptide level was 7000. Patient admitted and started on diuresis. I was called to assist with pulmonary care and BIPAP management. PAST MEDICAL HISTORY: congestive heart failure, hypertension, hyperlipidemia, and gout PHYSICAL EXAMINATION: Vital signs noted NAD on oxygen GENERAL: The patient is well developed, in no apparent distress. HEART: Regular rate and rhythm. without MRG LUNGS: reduced breath sounds bilaterally. some rhonchi ABDOMEN: Soft, nontender, and nondistended. no HSM EXTREMITIES: Without clubbing, cyanosis, or edema. NEURO: nonfocal and confused Labs Noted Test 03/09/19 01:55 03/09/19 02:01 03/09/19 03:00 03/09/19 03:55 White Blood Count 13.7 K/UL (4.8-10.8) Red Blood Count 4.63 M/UL (4.70-6.10) Hemoglobin 14.1 G/DL (14.2-18.0) Hematocrit 43.7 % (42.0-52.0) Mean Corpuscular Volume 94 FL (80-99) Mean Corpuscular Hemoglobin 30.6 PG (27.0-31.0) Mean Corpuscular Hemoglobin Concent 32.4 G/DL (32.0-36.0) Red Cell Distribution Width 13.9 % (11.6-14.8) Platelet Count 260 K/UL (150-450) Mean Platelet Volume 7.5 FL (6.5-10.1) Neutrophils (%) (Auto) % (45.0-75.0) Lymphocytes (%) (Auto) % (20.0-45.0) Monocytes (%) (Auto) % (1.0-10.0) Eosinophils (%) (Auto) % (0.0-3.0) Basophils (%) (Auto) % (0.0-2.0) Prothrombin Time 9.9 SEC (9.30-11.50) Prothromb Time International Ratio 0.9 (0.9-1.1) Activated Partial Thromboplast Time 29 SEC (23-33) Sodium Level 137 MMOL/L (136-145) Potassium Level 5.1 MMOL/L (3.5-5.1) Chloride Level 98 MMOL/L (98-107) Carbon Dioxide Level 34 MMOL/L (21-32) Anion Gap 5 mmol/L (5-15) Blood Urea Nitrogen 32 mg/dL (7-18) Creatinine 1.7 MG/DL (0.55-1.30) Estimat Glomerular Filtration Rate mL/min (>60) Glucose Level 185 MG/DL (74-106) Lactic Acid Level 1.90 mmol/L (0.4-2.0) Calcium Level 8.5 MG/DL (8.5-10.1) Total Bilirubin 0.4 MG/DL (0.2-1.0) Aspartate Amino Transf (AST/SGOT) 46 U/L (15-37) Alanine Aminotransferase (ALT/SGPT) 45 U/L (12-78) Alkaline Phosphatase 181 U/L (46-116) Total Creatine Kinase 32 U/L (26-308) Creatine Kinase MB 0.8 NG/ML (0.0-3.6) Creatine Kinase MB Relative Index 2.5 Troponin I 0.079 ng/mL (0.000-0.056) Pro-B-Type Natriuretic Peptide 7047 pg/mL (0-125) Total Protein 6.7 G/DL (6.4-8.2) Albumin 3.1 G/DL (3.4-5.0) Globulin 3.6 g/dL Albumin/Globulin Ratio 0.9 (1.0-2.7) Lipase 84 U/L (73-393) Arterial Blood pH 7.252 (7.350-7.450) 7.342 (7.350-7.450) Arterial Blood Partial Pressure CO2 66.3 mmHg (35.0-45.0) 53.7 mmHg (35.0-45.0) Arterial Blood Partial Pressure O2 310.2 mmHg (75.0-100.0) 65.9 mmHg (75.0-100.0) Arterial Blood HCO3 28.6 mmol/L (22.0-26.0) 28.5 mmol/L (22.0-26.0) Arterial Blood Oxygen Saturation 99.2 % (95-100) 90.8 % (95-100) Arterial Blood Base Excess -0.1 (-2-2) 1.7 (-2-2) Sharif Test Positive Positive Urine Color Pale yellow Urine Appearance Clear Urine pH 5 (4.5-8.0) Urine Specific Amma 1.015 (1.005-1.035) Urine Protein Negative (NEGATIVE) Urine Glucose (UA) Negative (NEGATIVE) Urine Ketones Negative (NEGATIVE) Urine Blood Negative (NEGATIVE) Urine Nitrite Negative (NEGATIVE) Urine Bilirubin Negative (NEGATIVE) Urine Urobilinogen Normal MG/DL (0.0-1.0) Urine Leukocyte Esterase Negative (NEGATIVE) Test 03/09/19 07:39 03/09/19 08:40 03/10/19 03:50 Arterial Blood pH 7.287 (7.350-7.450) 7.356 (7.350-7.450) Arterial Blood Partial Pressure CO2 58.9 mmHg (35.0-45.0) 47.9 mmHg (35.0-45.0) Arterial Blood Partial Pressure O2 147.5 mmHg (75.0-100.0) 81.9 mmHg (75.0-100.0) Arterial Blood HCO3 27.5 mmol/L (22.0-26.0) 26.2 mmol/L (22.0-26.0) Arterial Blood Oxygen Saturation 98.1 % (95-100) 94.7 % (95-100) Arterial Blood Base Excess -0.2 (-2-2) 0.2 (-2-2) Sharif Test Positive Positive Sodium Level 139 MMOL/L (136-145) Potassium Level 3.7 MMOL/L (3.5-5.1) Chloride Level 98 MMOL/L (98-107) Carbon Dioxide Level 35 MMOL/L (21-32) Anion Gap 6 mmol/L (5-15) Blood Urea Nitrogen 30 mg/dL (7-18) Creatinine 1.3 MG/DL (0.55-1.30) Estimat Glomerular Filtration Rate mL/min (>60) Glucose Level 89 MG/DL (74-106) Calcium Level 8.4 MG/DL (8.5-10.1) Total Bilirubin 0.5 MG/DL (0.2-1.0) Aspartate Amino Transf (AST/SGOT) 31 U/L (15-37) Alanine Aminotransferase (ALT/SGPT) 34 U/L (12-78) Alkaline Phosphatase 138 U/L (46-116) Total Protein 5.8 G/DL (6.4-8.2) Albumin 2.6 G/DL (3.4-5.0) Globulin 3.2 g/dL Albumin/Globulin Ratio 0.8 (1.0-2.7) ASSESSMENT: hypertension, ho pneumonia hyperlipidemia, congestive heart failure exacerbation respiratory failure, acute toxic metabolic encephalopathy hypoxemia pleural calcifications PLAN care as is diurese oxygen BIPAP and assess off repeat ABG repeat CXR hold on antibiotics aspiration precautions impression, plan, and exam edited and reviewed in detail care discussed with RN Subjective ROS Limited/Unobtainable: No Allergies: Coded Allergies: No Known Allergies (Unverified , 03/09/19) Objective Last 24 Hour Vital Signs Date Time Temp Pulse Resp B/P (MAP) Pulse Ox O2 Delivery O2 Flow Rate FiO2 03/11/19 20:00 96 Nasal Cannula 3.0 32 03/11/19 20:00 98.2 76 18 136/71 (92) 98 03/11/19 20:00 76 03/11/19 20:00 Nasal Cannula 3.0 03/11/19 16:00 78 03/11/19 16:00 Nasal Cannula 3.0 03/11/19 16:00 98.4 77 20 128/73 (91) 98 03/11/19 14:39 98.2 03/11/19 12:00 Nasal Cannula 3.0 03/11/19 12:00 98.2 73 18 127/68 (87) 98 03/11/19 12:00 81 03/11/19 08:05 97 Nasal Cannula 3.0 32 03/11/19 08:00 97.7 76 20 131/66 (87) 98 03/11/19 08:00 73 03/11/19 08:00 Nasal Cannula 3.0 03/11/19 04:00 98.5 82 20 133/73 (93) 98 03/11/19 04:00 Nasal Cannula 3.0 03/11/19 03:31 79 03/11/19 00:00 Nasal Cannula 3.0 03/11/19 00:00 99.0 83 20 126/70 (88) 97 03/10/19 23:20 79 Intake and Output 03/10/19 03/11/19 18:59 06:59 Intake Total 320 ml 239.7497 ml Output Total 300 ml 500 ml Balance 20 ml -260.2503 ml Intake Oral 320 ml 50 ml IV Total 189.7497 ml Output Urine Total 300 ml 500 ml # Voids 3 4 # Bowel Movements 1 5 Microbiology Date/Time Source Procedure Growth Status 03/09/19 02:00 Blood Blood Culture - Preliminary NO GROWTH AFTER 48 HOURS Resulted 03/09/19 01:55 Blood Blood Culture - Preliminary NO GROWTH AFTER 48 HOURS Resulted 03/09/19 04:15 Nasal Nares MRSA Culture - Final NO METHICILLIN RESISTANT STAPH AUREUS... Complete 03/09/19 04:15 Rectum - Final NO CARBAPENEM-RESISTANT ENTEROBACTERI... Complete 03/09/19 04:15 Rectum VRE Culture - Final Enterococcus Faecalis - Vre Complete Laboratory Tests 03/11/19 03:15: Sodium Level 137, Potassium Level 3.4L, Chloride Level 98, Carbon Dioxide Level 35H, Anion Gap 4L, Blood Urea Nitrogen 28H, Creatinine 1.1, Estimat Glomerular Filtration Rate , Glucose Level 97, Calcium Level 8.7 Current Medications Medications (Trade) Dose Ordered Sig/Kala Route PRN Reason Start Time Stop Time Status Last Admin Dose Admin Atorvastatin Calcium (Lipitor) 10 mg BEDTIME ORAL 03/09/19 21:00 04/08/19 20:59 03/11/19 21:13 Clonidine HCl (Catapres Tab) 0.1 mg Q4H PRN ORAL For High Blood Pressure 03/09/19 06:30 04/08/19 06:29 Clopidogrel Bisulfate (Plavix) 75 mg DAILY ORAL 03/09/19 09:00 04/08/19 08:59 03/11/19 09:05 Furosemide (Lasix) 40 mg DAILY ORAL 03/11/19 09:00 04/10/19 08:59 03/11/19 09:05 Guaifenesin (Robitussin) 200 mg Q4H PRN ORAL For Cough 03/09/19 11:00 04/08/19 10:59 03/09/19 11:17 Heparin Sodium (Porcine) (Heparin 5000 units/ml) 5,000 units EVERY 12 HOURS SUBQ 03/09/19 09:00 04/08/19 08:59 03/11/19 21:14 Montelukast Sodium (Singulair) 10 mg QPM ORAL 03/09/19 16:30 04/08/19 16:29 03/11/19 17:15 Piperacillin Sod/ Tazobactam Sod 3.375 gm/Sodium Chloride 110 ml @ 27.5 mls/hr EVERY 8 HOURS IVPB 03/10/19 18:00 03/15/19 17:59 03/11/19 21:15 Pregabalin (Lyrica) 75 mg Q8HR ORAL 03/09/19 09:00 04/08/19 08:59 03/11/19 21:21 Tamsulosin HCl (Flomax) 0.4 mg DAILY ORAL 03/09/19 09:00 04/08/19 08:59 03/11/19 09:05 Temazepam (Restoril) 7.5 mg HSPRN PRN ORAL Insomnia 03/09/19 20:15 03/16/19 20:14 03/11/19 21:13 Vancomycin HCl (Vanco rx to dose) 1 ea DAILY PRN MISC Per rx protocol 03/10/19 17:00 04/09/19 16:59 Vancomycin HCl 750 mg/Sodium Chloride 275 ml @ 183.333 mls/hr Q12H IVPB 03/11/19 06:00 03/16/19 05:59 03/11/19 17:15 Luis Caballero MD Mar 11, 2019 23:12
[2019-03-11] MEDS: guaiFENesin 100mg/5ml Liq ud ORAL PRN (23:29)
[2019-03-12] VITALS: BP 119/71
--- NOTE | 2019-03-12 02:39 | NUR ---
NURSE NOTES: Observed pt sleeping in the bed. SR with threat monitoring analyst. On 3L O2 with no signs of SOB noted. NO acute distress noted at this time. Will continue to monitor.
[2019-03-12 04:00] VITALS: BP 119/60
[2019-03-12 05:20] LABS: ANION GAP 2 mmol/L (5-15); BLOOD UREA NITROGEN 20 mg/dL (7-18); CALCIUM 9.1 MG/DL (8.5-10.1); CARBON DIOXIDE 35 MMOL/L (21-32); CHLORIDE 102 MMOL/L (98-107); CREATININE 1.2 MG/DL (0.55-1.30); SODIUM 139 MMOL/L (136-145)
[2019-03-12] MEDS: Lyrica 75mg cap ORAL SCH ×3 (05:58→21:02)
[2019-03-12] MEDS: Vancomycin 750mg/NS 275ml IVPB SCH ×4 (05:59→17:03)
[2019-03-12] MEDS: Piperacillin/Tazobactam 3.375 GM in NS 110 ML IVPB SCH ×3 (05:59→21:02)
--- NOTE | 2019-03-12 07:06 | NUR ---
NURSE NOTES: Report received from NIKOLE Daniel. Observed patient in bed sitting in the chair. Pt. is alert and oriented x 4 and verbally responsive. Denies pain at this time. No distress noted with 3L of oxygen via N/C. IV site intact with ongoing IV ATB at prescribed rate. Family at bedside. Bed in lowest position. Call light within reach. Will continue to monitor.
--- NOTE | 2019-03-12 07:07 | NUR ---
HAND-OFF: Report given to NIKOLE Lambert. No acute distress noted at this time. Pt sitting in the chair. Family member at bedside.
[2019-03-12 08:00] VITALS: BP 108/64
--- NOTE | 2019-03-12 08:10 | General Progress Note ---
Assessment/Plan Problem List: (1) Hospital acquired PNA ICD Codes: J18.9 - Pneumonia, unspecified organism; Y95 - Nosocomial condition SNOMED: 790716132 (2) CHF (congestive heart failure), NYHA class IV ICD Codes: I50.9 - Heart failure, unspecified SNOMED: 362544498, 655136607 (3) Sepsis ICD Codes: A41.9 - Sepsis, unspecified organism SNOMED: 85220796 (4) Respiratory distress ICD Codes: R06.03 - Acute respiratory distress SNOMED: 914931840 (5) Altered level of consciousness ICD Codes: R40.4 - Transient alteration of awareness SNOMED: 0884892 Status: stable, progressing Assessment/Plan: a/ chf pna sepsis p/ lasix iv abx follow up cultures monitor cxr d/w dtr d/w Subjective ROS Limited/Unobtainable: No Constitutional: Reports: malaise, weakness HEENT: Reports: no symptoms Cardiovascular: Reports: no symptoms Respiratory: Reports: cough, shortness of breath Gastrointestinal/Abdominal: Reports: no symptoms Genitourinary: Reports: no symptoms Neurologic/Psychiatric: Reports: no symptoms Endocrine: Reports: no symptoms Hematologic/Lymphatic: Reports: no symptoms Allergies: Coded Allergies: No Known Allergies (Unverified , 03/09/19) All Systems: reviewed and negative except above Subjective no overnight events. off bipap on NC. at the bedside. feels pt is doing better. Objective Last 24 Hour Vital Signs Date Time Temp Pulse Resp B/P (MAP) Pulse Ox O2 Delivery O2 Flow Rate FiO2 03/12/19 08:05 98 Nasal Cannula 3.0 32 03/12/19 04:00 98.0 74 18 119/60 (79) 98 03/12/19 04:00 76 03/12/19 04:00 Nasal Cannula 3.0 03/12/19 00:00 89 03/12/19 00:00 98.2 80 18 119/71 (87) 97 03/12/19 00:00 Nasal Cannula 3.0 03/11/19 20:00 96 Nasal Cannula 3.0 32 03/11/19 20:00 98.2 76 18 136/71 (92) 98 03/11/19 20:00 76 03/11/19 20:00 Nasal Cannula 3.0 7/17/19 16:00 78 03/11/19 16:00 Nasal Cannula 3.0 03/11/19 16:00 98.4 77 20 128/73 (91) 98 03/11/19 14:39 98.2 03/11/19 12:00 Nasal Cannula 3.0 03/11/19 12:00 98.2 73 18 127/68 (87) 98 03/11/19 12:00 81 Intake and Output 03/11/19 03/12/19 19:00 07:00 Intake Total 348.333 ml 557.5 ml Balance 348.333 ml 557.5 ml Intake Oral 420 ml IV Total 348.333 ml 137.5 ml # Voids 7 # Bowel Movements 6 1 Laboratory Tests 03/12/19 04:50: Sodium Level 139, Potassium Level 4.0, Chloride Level 102, Carbon Dioxide Level 35H, Anion Gap 2L, Blood Urea Nitrogen 20H, Creatinine 1.2, Estimat Glomerular Filtration Rate , Glucose Level 110H, Calcium Level 9.1, Vancomycin Level Trough 14.6H Height (Feet): 5 Height (Inches): 8.00 Weight (Pounds): 169 Objective General Appearance: WD/WN, alert Neck: supple Cardiovascular: normal rate, regular rhythm Respiratory/Chest: chest wall non-tender, lungs clear, normal breath sounds, no respiratory distress, no accessory muscle use Abdomen: normal bowel sounds, non tender, soft, no organomegaly, no mass Edema: no edema noted Arm (L), no edema noted Arm (R), no edema noted Leg (L), no edema noted Leg (R), no edema noted Pedal (L), no edema noted Pedal (R), no edema noted 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
[2019-03-12] MEDS: Furosemide 40mg tab ORAL SCH (08:42)
[2019-03-12] MEDS: Tamsulosin 0.4mg cap ORAL SCH (08:42)
[2019-03-12] MEDS: Heparin 5000 units/ml inj SUBQ SCH ×2 (08:44→21:04)
--- NOTE | 2019-03-12 09:10 | Pulmonology Progress Note ---
Assessment/Plan Assessment/Plan ASSESSMENT: hypertension, ho pneumonia hyperlipidemia, congestive heart failure exacerbation respiratory failure, acute toxic metabolic encephalopathy hypoxemia pleural calcifications PLAN care as is for now diurese and monitor oxygen BIPAP off and stable repeat ABG reviewed repeat CXR overall no change aspiration precautions impression, plan, and exam edited and reviewed in detail care discussed with RN Subjective Allergies: Coded Allergies: No Known Allergies (Unverified , 03/09/19) Subjective comfortable on NC Objective Last 24 Hour Vital Signs Date Time Temp Pulse Resp B/P (MAP) Pulse Ox O2 Delivery O2 Flow Rate FiO2 03/12/19 08:05 98 Nasal Cannula 3.0 32 03/12/19 04:00 98.0 74 18 119/60 (79) 98 03/12/19 04:00 76 03/12/19 04:00 Nasal Cannula 3.0 03/12/19 00:00 89 03/12/19 00:00 98.2 80 18 119/71 (87) 97 03/12/19 00:00 Nasal Cannula 3.0 03/11/19 20:00 96 Nasal Cannula 3.0 32 03/11/19 20:00 98.2 76 18 136/71 (92) 98 03/11/19 20:00 76 03/11/19 20:00 Nasal Cannula 3.0 03/11/19 16:00 78 03/11/19 16:00 Nasal Cannula 3.0 03/11/19 16:00 98.4 77 20 128/73 (91) 98 03/11/19 14:39 98.2 03/11/19 12:00 Nasal Cannula 3.0 03/11/19 12:00 98.2 73 18 127/68 (87) 98 03/11/19 12:00 81 Intake and Output 03/11/19 03/12/19 19:00 07:00 Intake Total 348.333 ml 557.5 ml Balance 348.333 ml 557.5 ml Intake Oral 420 ml IV Total 348.333 ml 137.5 ml # Voids 7 # Bowel Movements 6 1 Objective WDWN NAD on oxygen reduced breath sounds bilaterally without rhonchi or wheeze [id number] without MRG NABS nontender no HSM no CCE nonfocal alert Microbiology Date/Time Source Procedure Growth Status 03/11/19 15:50 Sputum Gram Stain - Final Resulted 03/11/19 15:50 Sputum Sputum Culture Pending Resulted Laboratory Tests 03/12/19 04:50: Sodium Level 139, Potassium Level 4.0, Chloride Level 102, Carbon Dioxide Level 35H, Anion Gap 2L, Blood Urea Nitrogen 20H, Creatinine 1.2, Estimat Glomerular Filtration Rate , Glucose Level 110H, Calcium Level 9.1, Vancomycin Level Trough 14.6H Current Medications Medications (Trade) Dose Ordered Sig/Kala Route PRN Reason Start Time Stop Time Status Last Admin Dose Admin Atorvastatin Calcium (Lipitor) 10 mg BEDTIME ORAL 03/09/19 21:00 04/08/19 20:59 03/11/19 21:13 Clonidine HCl (Catapres Tab) 0.1 mg Q4H PRN ORAL For High Blood Pressure 03/09/19 06:30 04/08/19 06:29 Clopidogrel Bisulfate (Plavix) 75 mg DAILY ORAL 03/09/19 09:00 04/08/19 08:59 03/12/19 08:42 Furosemide (Lasix) 40 mg DAILY ORAL 03/11/19 09:00 04/10/19 08:59 03/12/19 08:42 Guaifenesin (Robitussin) 200 mg Q4H PRN ORAL For Cough 03/09/19 11:00 04/08/19 10:59 03/11/19 23:29 Heparin Sodium (Porcine) (Heparin 5000 units/ml) 5,000 units EVERY 12 HOURS SUBQ 03/09/19 09:00 04/08/19 08:59 03/12/19 08:44 Montelukast Sodium (Singulair) 10 mg QPM ORAL 03/09/19 16:30 04/08/19 16:29 03/11/19 17:15 Piperacillin Sod/ Tazobactam Sod 3.375 gm/Sodium Chloride 110 ml @ 27.5 mls/hr EVERY 8 HOURS IVPB 03/10/19 18:00 03/15/19 17:59 03/12/19 05:59 Pregabalin (Lyrica) 75 mg Q8HR ORAL 03/09/19 09:00 04/08/19 08:59 03/12/19 05:58 Tamsulosin HCl (Flomax) 0.4 mg DAILY ORAL 03/09/19 09:00 04/08/19 08:59 03/12/19 08:42 Temazepam (Restoril) 7.5 mg HSPRN PRN ORAL Insomnia 03/09/19 20:15 03/16/19 20:14 03/11/19 21:13 Vancomycin HCl (Vanco rx to dose) 1 ea DAILY PRN MISC Per rx protocol 03/10/19 17:00 04/09/19 16:59 Vancomycin HCl 750 mg/Sodium Chloride 275 ml @ 183.333 mls/hr Q12H IVPB 03/11/19 06:00 03/16/19 05:59 03/12/19 05:59 Adrian Saleem MD Mar 12, 2019 09:10
--- NOTE | 2019-03-12 11:13 | Infectious Diseases Prog Note ---
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 failure AMS CHF P; Continue Zosyn & Vancomycin Will f/u sputum culture Subjective ROS Limited/Unobtainable: Yes Allergies: Coded Allergies: No Known Allergies (Unverified , 03/09/19) Objective Vital Signs Last 24 Hour Vital Signs Date Time Temp Pulse Resp B/P (MAP) Pulse Ox O2 Delivery O2 Flow Rate FiO2 03/12/19 08:05 98 Nasal Cannula 3.0 32 03/12/19 08:00 97.7 76 20 108/64 (79) 97 03/12/19 08:00 76 03/12/19 08:00 Nasal Cannula 3.0 03/12/19 04:00 98.0 74 18 119/60 (79) 98 03/12/19 04:00 76 03/12/19 04:00 Nasal Cannula 3.0 03/12/19 00:00 89 03/12/19 00:00 98.2 80 18 119/71 (87) 97 03/12/19 00:00 Nasal Cannula 3.0 03/11/19 20:00 96 Nasal Cannula 3.0 32 03/11/19 20:00 98.2 76 18 136/71 (92) 98 03/11/19 20:00 76 03/11/19 20:00 Nasal Cannula 3.0 03/11/19 16:00 78 03/11/19 16:00 Nasal Cannula 3.0 03/11/19 16:00 98.4 77 20 128/73 (91) 98 03/11/19 14:39 98.2 03/11/19 12:00 Nasal Cannula 3.0 03/11/19 12:00 98.2 73 18 127/68 (87) 98 03/11/19 12:00 81 Height (Feet): 5 Height (Inches): 8.00 Weight (Pounds): 169 General Appearance: no acute distress HEENT: mucous membranes moist Respiratory/Chest: lungs clear, other - oxygen by nasal cannula Cardiovascular: normal rate Abdomen: soft, non tender Extremities: no edema Neurologic/Psychiatric: other - sleeping Microbiology Date/Time Source Procedure Growth Status 03/11/19 15:50 Sputum Gram Stain - Final Resulted 03/11/19 15:50 Sputum Sputum Culture Pending Resulted Laboratory Tests Test 03/12/19 04:50 Sodium Level 139 MMOL/L (136-145) Potassium Level 4.0 MMOL/L (3.5-5.1) Chloride Level 102 MMOL/L (98-107) Carbon Dioxide Level 35 MMOL/L (21-32) H Anion Gap 2 mmol/L (5-15) L Blood Urea Nitrogen 20 mg/dL (7-18) H Creatinine 1.2 MG/DL (0.55-1.30) Estimat Glomerular Filtration Rate mL/min (>60) Glucose Level 110 MG/DL (74-106) H Calcium Level 9.1 MG/DL (8.5-10.1) Vancomycin Level Trough 14.6 ug/mL (5.0-12.0) H Current Medications Medications (Trade) Dose Ordered Sig/Kala Route PRN Reason Start Time Stop Time Status Last Admin Dose Admin Atorvastatin Calcium (Lipitor) 10 mg BEDTIME ORAL 03/09/19 21:00 04/08/19 20:59 03/11/19 21:13 Clonidine HCl (Catapres Tab) 0.1 mg Q4H PRN ORAL For High Blood Pressure 03/09/19 06:30 04/08/19 06:29 Clopidogrel Bisulfate (Plavix) 75 mg DAILY ORAL 03/09/19 09:00 04/08/19 08:59 03/12/19 08:42 Furosemide (Lasix) 40 mg DAILY ORAL 03/11/19 09:00 04/10/19 08:59 03/12/19 08:42 Guaifenesin (Robitussin) 200 mg Q4H PRN ORAL For Cough 03/09/19 11:00 04/08/19 10:59 03/11/19 23:29 Heparin Sodium (Porcine) (Heparin 5000 units/ml) 5,000 units EVERY 12 HOURS SUBQ 03/09/19 09:00 04/08/19 08:59 03/12/19 08:44 Montelukast Sodium (Singulair) 10 mg QPM ORAL 03/09/19 16:30 04/08/19 16:29 03/11/19 17:15 Piperacillin Sod/ Tazobactam Sod 3.375 gm/Sodium Chloride 110 ml @ 27.5 mls/hr EVERY 8 HOURS IVPB 03/10/19 18:00 03/15/19 17:59 03/12/19 05:59 Pregabalin (Lyrica) 75 mg Q8HR ORAL 03/09/19 09:00 04/08/19 08:59 03/12/19 05:58 Tamsulosin HCl (Flomax) 0.4 mg DAILY ORAL 03/09/19 09:00 04/08/19 08:59 03/12/19 08:42 Temazepam (Restoril) 7.5 mg HSPRN PRN ORAL Insomnia 03/09/19 20:15 03/16/19 20:14 03/11/19 21:13 Vancomycin HCl (Vanco rx to dose) 1 ea DAILY PRN MISC Per rx protocol 03/10/19 17:00 04/09/19 16:59 Vancomycin HCl 750 mg/Sodium Chloride 275 ml @ 183.333 mls/hr Q12H IVPB 03/11/19 06:00 03/16/19 05:59 03/12/19 05:59 Piyush Berger MD Mar 12, 2019 11:13
[2019-03-12 11:57] VITALS: BP 110/58
[2019-03-12] MEDS: guaiFENesin 100mg/5ml Liq ud ORAL PRN ×2 (15:31→21:07)
[2019-03-12] MEDS: Montelukast 10mg tablet ORAL SCH (15:31)
[2019-03-12 16:00] VITALS: BP 109/65
--- NOTE | 2019-03-12 19:15 | NUR ---
HAND-OFF: Report given to NIKOLE Rice. Stable condition..
--- NOTE | 2019-03-12 19:20 | NUR ---
NURSE NOTES: Received patient from NIKOLE MARTI. Will continue plan of care.
[2019-03-12 20:00] VITALS: BP 136/77
--- NOTE | 2019-03-12 21:45 | NUR ---
NURSE NOTES: Transferred patient from 239-2 to room 221-2. Report given to NIKOLE Diaz. Patient is stable, at bedside. No belongings. Orders transferred.
--- NOTE | 2019-03-12 21:46 | NUR ---
NURSE NOTES: Pt received in stable condition. Pt is alert and oriented, on NC, IV sites intact and patent, no belongings, with patient at bedside.
[2019-03-12] MEDS ORDERED: Piperacillin/Tazobactam 3.375 GM in NS 110 ML IVPB SCH (22:00)
[2019-03-13] VITALS: BP 124/63
[2019-03-13] MEDS ORDERED: guaiFENesin 100mg/5ml Liq ud ORAL PRN (01:00)
[2019-03-13 04:00] VITALS: BP 133/65
[2019-03-13] MEDS: Lyrica 75mg cap ORAL SCH ×3 (05:05→21:09)
[2019-03-13] MEDS: Piperacillin/Tazobactam 3.375 GM in NS 110 ML IVPB SCH ×3 (05:06→21:03)
[2019-03-13] MEDS ORDERED: Vancomycin 750 MG in NS 275 ML IVPB SCH (06:00)
--- NOTE | 2019-03-13 07:20 | NUR ---
NURSE NOTES: Report received from NIKOLE Allison. Pt. is alert and oriented x 4 and verbally responsive. Denies pain at this time. Patient on radiation monitor. No respiratory distress noted with 3L of oxygen via N/C. IV site intact with ongoing IV ATB at prescribed rate. Family at bedside. Bed in lowest position. Call light within reach. Will continue to monitor.
--- NOTE | 2019-03-13 07:26 | NUR ---
HAND-OFF: Report given to NIKOLE Gomez
[2019-03-13 08:00] VITALS: BP 126/58
--- NOTE | 2019-03-13 08:24 | General Progress Note ---
Assessment/Plan Problem List: (1) Hospital acquired PNA ICD Codes: J18.9 - Pneumonia, unspecified organism; Y95 - Nosocomial condition SNOMED: 686256798 (2) CHF (congestive heart failure), NYHA class IV ICD Codes: I50.9 - Heart failure, unspecified SNOMED: 897881883, 045896377 (3) Sepsis ICD Codes: A41.9 - Sepsis, unspecified organism SNOMED: 65279434 (4) Respiratory distress ICD Codes: R06.03 - Acute respiratory distress SNOMED: 959799675 (5) Altered level of consciousness ICD Codes: R40.4 - Transient alteration of awareness SNOMED: 7204147 Status: stable, progressing Assessment/Plan: lasix iv abx per id follow up cultures monitor cxr- repeat today wean o2 may need home o2 d/w dtr d/w Subjective ROS Limited/Unobtainable: No Constitutional: Reports: malaise, weakness HEENT: Reports: no symptoms Cardiovascular: Reports: no symptoms Respiratory: Reports: cough, shortness of breath Gastrointestinal/Abdominal: Reports: no symptoms Genitourinary: Reports: no symptoms Neurologic/Psychiatric: Reports: no symptoms Endocrine: Reports: no symptoms Hematologic/Lymphatic: Reports: no symptoms Allergies: Coded Allergies: No Known Allergies (Unverified , 03/09/19) All Systems: reviewed and negative except above Subjective no overnight events. off bipap on NC. at the bedside. feels pt is doing better. Objective Last 24 Hour Vital Signs Date Time Temp Pulse Resp B/P (MAP) Pulse Ox O2 Delivery O2 Flow Rate FiO2 03/13/19 04:10 Nasal Cannula 3.0 03/13/19 04:00 74 03/13/19 04:00 98.8 76 18 133/65 (87) 98 03/13/19 00:00 67 03/13/19 00:00 Nasal Cannula 3.0 03/13/19 00:00 97.2 69 18 124/63 (83) 97 03/12/19 20:00 Nasal Cannula 3.0 03/12/19 20:00 98.7 76 20 136/77 (96) 98 03/12/19 19:55 97 Nasal Cannula 3.0 32 03/12/19 19:12 83 03/12/19 16:00 77 03/12/19 16:00 97.9 73 20 109/65 (80) 97 03/12/19 15:54 Nasal Cannula 3.0 03/12/19 12:00 Nasal Cannula 3.0 03/12/19 12:00 77 03/12/19 11:57 97.0 83 22 110/58 (75) 96 Intake and Output 03/12/19 03/13/19 19:00 07:00 Intake Total 909.167 ml Output Total 350 ml Balance 559.167 ml Intake Oral 350 ml IV Total 559.167 ml Output Urine Total 350 ml # Voids 4 1 # Bowel Movements 1 Height (Feet): 5 Height (Inches): 8.00 Weight (Pounds): 169 Objective General Appearance: WD/WN, alert Neck: supple Cardiovascular: normal rate, regular rhythm Respiratory/Chest: chest wall non-tender, lungs clear, normal breath sounds, no respiratory distress, no accessory muscle use Abdomen: normal bowel sounds, non tender, soft, no organomegaly, no mass Edema: no edema noted Arm (L), no edema noted Arm (R), no edema noted Leg (L), no edema noted Leg (R), no edema noted Pedal (L), no edema noted Pedal (R), no edema noted 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
[2019-03-13] MEDS: Tamsulosin 0.4mg cap ORAL SCH (08:38)
[2019-03-13] MEDS: Furosemide 40mg tab ORAL SCH (08:39)
[2019-03-13] MEDS: Heparin 5000 units/ml inj SUBQ SCH ×2 (08:40→21:07)
--- NOTE | 2019-03-13 11:01 | Pulmonology Progress Note ---
Assessment/Plan Assessment/Plan Pulmonary Progress Note 83-year-old female presents with increase in shortness of breath. The patient apparently recently hospitalized in an outside hospital for pneumonia and respiratory distress. She was in respiratory distress and placed on a BiPAP. CXR suggestive of CHF and pulmonary edema. Patient with acute respiratory acidosis. She also had an elevated troponin of 0.079 and natriuretic peptide level was 7000. Patient admitted and started on diuresis. I was called to assist with pulmonary care and BIPAP management. PAST MEDICAL HISTORY: congestive heart failure, hypertension, hyperlipidemia, and gout PHYSICAL EXAMINATION: Vital signs noted NAD on oxygen GENERAL: The patient is well developed, in no apparent distress. HEART: Regular rate and rhythm. without MRG LUNGS: reduced breath sounds bilaterally. some rhonchi ABDOMEN: Soft, nontender, and nondistended. no HSM EXTREMITIES: Without clubbing, cyanosis, or edema. NEURO: nonfocal and confused Labs Noted Test 03/09/19 01:55 03/09/19 02:01 03/09/19 03:00 03/09/19 03:55 White Blood Count 13.7 K/UL (4.8-10.8) Red Blood Count 4.63 M/UL (4.70-6.10) Hemoglobin 14.1 G/DL (14.2-18.0) Hematocrit 43.7 % (42.0-52.0) Mean Corpuscular Volume 94 FL (80-99) Mean Corpuscular Hemoglobin 30.6 PG (27.0-31.0) Mean Corpuscular Hemoglobin Concent 32.4 G/DL (32.0-36.0) Red Cell Distribution Width 13.9 % (11.6-14.8) Platelet Count 260 K/UL (150-450) Mean Platelet Volume 7.5 FL (6.5-10.1) Neutrophils (%) (Auto) % (45.0-75.0) Lymphocytes (%) (Auto) % (20.0-45.0) Monocytes (%) (Auto) % (1.0-10.0) Eosinophils (%) (Auto) % (0.0-3.0) Basophils (%) (Auto) % (0.0-2.0) Prothrombin Time 9.9 SEC (9.30-11.50) Prothromb Time International Ratio 0.9 (0.9-1.1) Activated Partial Thromboplast Time 29 SEC (23-33) Sodium Level 137 MMOL/L (136-145) Potassium Level 5.1 MMOL/L (3.5-5.1) Chloride Level 98 MMOL/L (98-107) Carbon Dioxide Level 34 MMOL/L (21-32) Anion Gap 5 mmol/L (5-15) Blood Urea Nitrogen 32 mg/dL (7-18) Creatinine 1.7 MG/DL (0.55-1.30) Estimat Glomerular Filtration Rate mL/min (>60) Glucose Level 185 MG/DL (74-106) Lactic Acid Level 1.90 mmol/L (0.4-2.0) Calcium Level 8.5 MG/DL (8.5-10.1) Total Bilirubin 0.4 MG/DL (0.2-1.0) Aspartate Amino Transf (AST/SGOT) 46 U/L (15-37) Alanine Aminotransferase (ALT/SGPT) 45 U/L (12-78) Alkaline Phosphatase 181 U/L (46-116) Total Creatine Kinase 32 U/L (26-308) Creatine Kinase MB 0.8 NG/ML (0.0-3.6) Creatine Kinase MB Relative Index 2.5 Troponin I 0.079 ng/mL (0.000-0.056) Pro-B-Type Natriuretic Peptide 7047 pg/mL (0-125) Total Protein 6.7 G/DL (6.4-8.2) Albumin 3.1 G/DL (3.4-5.0) Globulin 3.6 g/dL Albumin/Globulin Ratio 0.9 (1.0-2.7) Lipase 84 U/L (73-393) Arterial Blood pH 7.252 (7.350-7.450) 7.342 (7.350-7.450) Arterial Blood Partial Pressure CO2 66.3 mmHg (35.0-45.0) 53.7 mmHg (35.0-45.0) Arterial Blood Partial Pressure O2 310.2 mmHg (75.0-100.0) 65.9 mmHg (75.0-100.0) Arterial Blood HCO3 28.6 mmol/L (22.0-26.0) 28.5 mmol/L (22.0-26.0) Arterial Blood Oxygen Saturation 99.2 % (95-100) 90.8 % (95-100) Arterial Blood Base Excess -0.1 (-2-2) 1.7 (-2-2) Sharif Test Positive Positive Urine Color Pale yellow Urine Appearance Clear Urine pH 5 (4.5-8.0) Urine Specific [place] 1.015 (1.005-1.035) Urine Protein Negative (NEGATIVE) Urine Glucose (UA) Negative (NEGATIVE) Urine Ketones Negative (NEGATIVE) Urine Blood Negative (NEGATIVE) Urine Nitrite Negative (NEGATIVE) Urine Bilirubin Negative (NEGATIVE) Urine Urobilinogen Normal MG/DL (0.0-1.0) Urine Leukocyte Esterase Negative (NEGATIVE) Test 03/09/19 07:39 03/09/19 08:40 03/10/19 03:50 Arterial Blood pH 7.287 (7.350-7.450) 7.356 (7.350-7.450) Arterial Blood Partial Pressure CO2 58.9 mmHg (35.0-45.0) 47.9 mmHg (35.0-45.0) Arterial Blood Partial Pressure O2 147.5 mmHg (75.0-100.0) 81.9 mmHg (75.0-100.0) Arterial Blood HCO3 27.5 mmol/L (22.0-26.0) 26.2 mmol/L (22.0-26.0) Arterial Blood Oxygen Saturation 98.1 % (95-100) 94.7 % (95-100) Arterial Blood Base Excess -0.2 (-2-2) 0.2 (-2-2) Sharif Test Positive Positive Sodium Level 139 MMOL/L (136-145) Potassium Level 3.7 MMOL/L (3.5-5.1) Chloride Level 98 MMOL/L (98-107) Carbon Dioxide Level 35 MMOL/L (21-32) Anion Gap 6 mmol/L (5-15) Blood Urea Nitrogen 30 mg/dL (7-18) Creatinine 1.3 MG/DL (0.55-1.30) Estimat Glomerular Filtration Rate mL/min (>60) Glucose Level 89 MG/DL (74-106) Calcium Level 8.4 MG/DL (8.5-10.1) Total Bilirubin 0.5 MG/DL (0.2-1.0) Aspartate Amino Transf (AST/SGOT) 31 U/L (15-37) Alanine Aminotransferase (ALT/SGPT) 34 U/L (12-78) Alkaline Phosphatase 138 U/L (46-116) Total Protein 5.8 G/DL (6.4-8.2) Albumin 2.6 G/DL (3.4-5.0) Globulin 3.2 g/dL Albumin/Globulin Ratio 0.8 (1.0-2.7) ASSESSMENT: hypertension, ho pneumonia hyperlipidemia, congestive heart failure exacerbation respiratory failure, acute toxic metabolic encephalopathy hypoxemia pleural calcifications PLAN care as is diurese oxygen BIPAP and assess off repeat ABG repeat CXR hold on antibiotics aspiration precautions impression, plan, and exam edited and reviewed in detail care discussed with RN Subjective ROS Limited/Unobtainable: No Allergies: Coded Allergies: No Known Allergies (Unverified , 03/09/19) Objective Last 24 Hour Vital Signs Date Time Temp Pulse Resp B/P (MAP) Pulse Ox O2 Delivery O2 Flow Rate FiO2 03/13/19 08:53 98 Nasal Cannula 3.0 32 03/13/19 08:00 98.0 73 18 126/58 (80) 97 03/13/19 08:00 Nasal Cannula 3.0 03/13/19 07:40 84 03/13/19 04:10 Nasal Cannula 3.0 03/13/19 04:00 74 03/13/19 04:00 98.8 76 18 133/65 (87) 98 03/13/19 00:00 67 03/13/19 00:00 Nasal Cannula 3.0 03/13/19 00:00 97.2 69 18 124/63 (83) 97 03/12/19 20:00 Nasal Cannula 3.0 03/12/19 20:00 98.7 76 20 136/77 (96) 98 03/12/19 19:55 97 Nasal Cannula 3.0 32 03/12/19 19:12 83 03/12/19 16:00 77 03/12/19 16:00 97.9 73 20 109/65 (80) 97 03/12/19 15:54 Nasal Cannula 3.0 03/12/19 12:00 Nasal Cannula 3.0 03/12/19 12:00 77 03/12/19 11:57 97.0 83 22 110/58 (75) 96 Intake and Output 03/12/19 03/13/19 19:00 07:00 Intake Total 909.167 ml Output Total 350 ml Balance 559.167 ml Intake Oral 350 ml IV Total 559.167 ml Output Urine Total 350 ml # Voids 4 1 # Bowel Movements 1 Microbiology Date/Time Source Procedure Growth Status 03/11/19 15:50 Sputum Gram Stain - Final Resulted 03/11/19 15:50 Sputum Culture - Preliminary Yumiko Albicans Resulted Current Medications Medications (Trade) Dose Ordered Sig/Kala Route PRN Reason Start Time Stop Time Status Last Admin Dose Admin Atorvastatin Calcium (Lipitor) 10 mg BEDTIME ORAL 03/13/19 21:00 04/08/19 20:59 Clonidine HCl (Catapres Tab) 0.1 mg Q4H PRN ORAL For High Blood Pressure 03/12/19 22:00 04/08/19 21:59 Clopidogrel Bisulfate (Plavix) 75 mg DAILY ORAL 03/13/19 09:00 04/08/19 08:59 03/13/19 08:38 Furosemide (Lasix) 40 mg DAILY ORAL 03/13/19 09:00 04/10/19 08:59 03/13/19 08:39 Guaifenesin (Robitussin) 200 mg Q4H PRN ORAL For Cough 03/13/19 01:00 04/12/19 00:59 Heparin Sodium (Porcine) (Heparin 5000 units/ml) 5,000 units EVERY 12 HOURS SUBQ 03/13/19 09:00 04/08/19 08:59 03/13/19 08:40 Montelukast Sodium (Singulair) 10 mg QPM ORAL 03/13/19 16:30 04/08/19 16:29 Piperacillin Sod/ Tazobactam Sod 3.375 gm/Sodium Chloride 110 ml @ 27.5 mls/hr EVERY 8 HOURS IVPB 03/13/19 06:00 03/20/19 05:59 03/13/19 05:06 Pregabalin (Lyrica) 75 mg Q8HR ORAL 03/13/19 06:00 04/12/19 05:59 03/13/19 05:05 Tamsulosin HCl (Flomax) 0.4 mg DAILY ORAL 03/13/19 09:00 04/08/19 08:59 03/13/19 08:38 Temazepam (Restoril) 7.5 mg HSPRN PRN ORAL Insomnia 03/13/19 20:15 03/16/19 20:14 Vancomycin HCl (Vanco rx to dose) 1 ea DAILY PRN MISC Per rx protocol 03/13/19 09:00 04/09/19 16:59 Vancomycin HCl 750 mg/Sodium Chloride 275 ml @ 183.333 mls/hr Q12H IVPB 03/13/19 06:00 03/16/19 05:59 03/13/19 05:06 Luis Caballero MD Mar 13, 2019 11:01
[2019-03-13] MEDS ORDERED: NS 275ml ONE (11:11)
--- NOTE | 2019-03-13 11:38 | Diagnostic Imaging Report ---
Indication: Cough Technique: One view of the chest Comparison: 03/10/2019 Findings: Airspace opacities with underlying honeycombing are seen in the right upper lobe. Pleural calcifications are again demonstrated on the right. There is a calcified granuloma at the right lung base. There is stable blunting of right costophrenic sulcus. There is some atelectasis versus scarring at the left lateral lung base. Findings are unchanged Impression: Unchanged, over one day, findings as above.
[2019-03-13 12:00] VITALS: BP 122/60
--- NOTE | 2019-03-13 12:21 | Infectious Diseases Prog Note ---
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 failure AMS CHF P; Continue Zosyn May discontinue Vancomycin Will f/u sputum culture Subjective ROS Limited/Unobtainable: No Respiratory: Reports: dry cough Cardiovascular: Reports: no symptoms Gastrointestinal/Abdominal: Reports: no symptoms Genitourinary: Reports: no symptoms Allergies: Coded Allergies: No Known Allergies (Unverified , 03/09/19) Objective Vital Signs Last 24 Hour Vital Signs Date Time Temp Pulse Resp B/P (MAP) Pulse Ox O2 Delivery O2 Flow Rate FiO2 03/13/19 08:53 98 Nasal Cannula 3.0 32 03/13/19 08:00 98.0 73 18 126/58 (80) 97 03/13/19 08:00 Nasal Cannula 3.0 03/13/19 07:40 84 03/13/19 04:10 Nasal Cannula 3.0 03/13/19 04:00 74 03/13/19 04:00 98.8 76 18 133/65 (87) 98 03/13/19 00:00 67 03/13/19 00:00 Nasal Cannula 3.0 03/13/19 00:00 97.2 69 18 124/63 (83) 97 03/12/19 20:00 Nasal Cannula 3.0 03/12/19 20:00 98.7 76 20 136/77 (96) 98 03/12/19 19:55 97 Nasal Cannula 3.0 32 03/12/19 19:12 83 03/12/19 16:00 77 03/12/19 16:00 97.9 73 20 109/65 (80) 97 03/12/19 15:54 Nasal Cannula 3.0 Height (Feet): 5 Height (Inches): 8.00 Weight (Pounds): 169 General Appearance: no acute distress HEENT: mucous membranes moist Respiratory/Chest: lungs clear Cardiovascular: normal rate, other - Permacath Abdomen: normal bowel sounds Extremities: no edema Neurologic/Psychiatric: alert, oriented x 3, responsive Microbiology Date/Time Source Procedure Growth Status 03/11/19 15:50 Sputum Gram Stain - Final Resulted 03/11/19 15:50 Sputum Culture - Preliminary Yumiko Albicans Resulted Current Medications Medications (Trade) Dose Ordered Sig/Kala Route PRN Reason Start Time Stop Time Status Last Admin Dose Admin Atorvastatin Calcium (Lipitor) 10 mg BEDTIME ORAL 03/13/19 21:00 04/08/19 20:59 Clonidine HCl (Catapres Tab) 0.1 mg Q4H PRN ORAL For High Blood Pressure 03/12/19 22:00 04/08/19 21:59 Clopidogrel Bisulfate (Plavix) 75 mg DAILY ORAL 03/13/19 09:00 04/08/19 08:59 03/13/19 08:38 Furosemide (Lasix) 40 mg DAILY ORAL 03/13/19 09:00 04/10/19 08:59 03/13/19 08:39 Guaifenesin (Robitussin) 200 mg Q4H PRN ORAL For Cough 03/13/19 01:00 04/12/19 00:59 Heparin Sodium (Porcine) (Heparin 5000 units/ml) 5,000 units EVERY 12 HOURS SUBQ 03/13/19 09:00 04/08/19 08:59 03/13/19 08:40 Montelukast Sodium (Singulair) 10 mg QPM ORAL 03/13/19 16:30 04/08/19 16:29 Piperacillin Sod/ Tazobactam Sod 3.375 gm/Sodium Chloride 110 ml @ 27.5 mls/hr EVERY 8 HOURS IVPB 03/13/19 06:00 03/20/19 05:59 03/13/19 05:06 Pregabalin (Lyrica) 75 mg Q8HR ORAL 03/13/19 06:00 04/12/19 05:59 03/13/19 05:05 Tamsulosin HCl (Flomax) 0.4 mg DAILY ORAL 03/13/19 09:00 04/08/19 08:59 03/13/19 08:38 Temazepam (Restoril) 7.5 mg HSPRN PRN ORAL Insomnia 03/13/19 20:15 03/16/19 20:14 Vancomycin HCl (Vanco rx to dose) 1 ea DAILY PRN MISC Per rx protocol 03/13/19 09:00 04/09/19 16:59 Vancomycin HCl 750 mg/Sodium Chloride 275 ml @ 183.333 mls/hr Q12H IVPB 03/13/19 06:00 03/16/19 05:59 03/13/19 05:06 Piyush Berger MD Mar 13, 2019 12:21
--- NOTE | 2019-03-13 12:37 | NUR ---
CASE MANAGEMENT:REVIEW 03/13/19 SI: RESPIRATORY FAILURE. PNA 98.0 73 18 126/58 97% ON 3L/NC IS: IV ZOSYN Q8HRS SINGULAIR PO QPM PLAVIX PO QD LASIX PO QD HEPARIN SQ Q12 FLOMAX PO QD : TELEMETRY STATUS DCP: FROM HOME
--- NOTE | 2019-03-13 13:26 | NUR ---
RD ASSESSMENT & RECOMMENDATIONS SEE CARE ACTIVITY FOR COMPLETE ASSESSMENT DAILY ESTIMATED NEEDS: Needs based on Pulmonary 65.9kg 25-30 kcals/kg 7094-9753 total kcals 1-1.5 g protein/kg 66-99 g total protein Fluid per MD, on lasix NUTRITION DIAGNOSIS: Altered nutrition related lab values r/t clinical status, PNA as evidenced by elev WBC (13.7), elev CO2 (35), elev BNP (7047). CURRENT DIET:Cardiac ms chopped PO DIET RECOMMENDATIONS: Rec LOW NA DIET / texture as tolerated ADDITIONAL RECOMMENDATIONS: 1) Consider Soft easy chew texture w/ Chopped meats 2) Obtain a daily STANDING weight for accuracy CHF DX W/ DAILY WTS 3) Monitor lytes daily on lasix
[2019-03-13 16:00] VITALS: BP 129/73
[2019-03-13] MEDS: Montelukast 10mg tablet ORAL SCH (16:30)
--- NOTE | 2019-03-13 19:45 | NUR ---
HAND-OFF: Report given to NIKOLE Ferraro. Patient is resting in bed with family at bedside.
[2019-03-13 20:00] VITALS: BP 147/75
--- NOTE | 2019-03-13 20:11 | NUR ---
NURSE NOTES: Report received from NIKOLE Gomez. Pt is in stable condition resting comfortably in bed. Bed in the lowest position, bed brakes engaged, side rails up x3 and call light within reach. Will continue to monitor.
[2019-03-14] VITALS: BP 122/71
[2019-03-14 04:00] VITALS: BP 114/56
[2019-03-14] MEDS: Lyrica 75mg cap ORAL SCH ×3 (05:53→21:01)
[2019-03-14] MEDS: Piperacillin/Tazobactam 3.375 GM in NS 110 ML IVPB SCH ×3 (05:54→21:01)
[2019-03-14 07:19] LABS: BASOPHILS % (AUTO) 1.3 % (0.0-2.0); EOSINOPHILS % (AUTO) 5.6 % (0.0-3.0); HEMOGLOBIN 14.1 G/DL (14.2-18.0); MEAN CORPUSCULAR VOLUME 93 FL (80-99); MONOCYTES % (AUTO) 15.7 % (1.0-10.0); NEUTROPHILS % (AUTO) 57.4 % (45.0-75.0); PLATELET COUNT 453 K/UL (150-450); RED BLOOD COUNT 4.62 M/UL (4.70-6.10); RED CELL DISTRIBUTION WIDTH 13.1 % (11.6-14.8); WHITE BLOOD COUNT 6.6 K/UL (4.8-10.8)
--- NOTE | 2019-03-14 07:28 | NUR ---
HAND-OFF: Report given to NIKOLE Garcia. Plan of care endorsed.
--- NOTE | 2019-03-14 07:31 | NUR ---
NURSE NOTES: Received report from More/RN, Patient is awake, lying semi-vera, no distress/SOB noted. at bedside. Checked IV, Patent, no bleeding or infiltration noted at this time. Bed in lowest position and locked, Call light within reach. All personal belonging within reach. Will continue plan of care.
[2019-03-14 07:40] LABS: ALANINE AMINOTRANSFERASE 36 U/L (12-78); ALBUMIN 2.6 G/DL (3.4-5.0); ALBUMIN/GLOBULIN RATIO 0.6 (1.0-2.7); ALKALINE PHOSPHATASE 91 U/L (46-116); ANION GAP 4 mmol/L (5-15); ASPARTATE AMINO TRANSFERASE 35 U/L (15-37); BILIRUBIN,TOTAL 0.4 MG/DL (0.2-1.0); BLOOD UREA NITROGEN 22 mg/dL (7-18); CALCIUM 9.1 MG/DL (8.5-10.1); CARBON DIOXIDE 35 MMOL/L (21-32); CHLORIDE 98 MMOL/L (98-107); CREATININE 1.2 MG/DL (0.55-1.30); POTASSIUM 3.5 MMOL/L (3.5-5.1); SODIUM 137 MMOL/L (136-145)
[2019-03-14 08:00] VITALS: BP 123/60
[2019-03-14] MEDS: Furosemide 40mg tab ORAL SCH (08:55)
[2019-03-14] MEDS: Tamsulosin 0.4mg cap ORAL SCH (08:55)
[2019-03-14] MEDS: Heparin 5000 units/ml inj SUBQ SCH ×2 (08:59→21:02)
[2019-03-14 12:00] VITALS: BP 118/64
--- NOTE | 2019-03-14 12:18 | General Progress Note ---
Assessment/Plan Problem List: (1) Hospital acquired PNA ICD Codes: J18.9 - Pneumonia, unspecified organism; Y95 - Nosocomial condition SNOMED: 423993682 (2) CHF (congestive heart failure), NYHA class IV ICD Codes: I50.9 - Heart failure, unspecified SNOMED: 995697628, 124542244 (3) Sepsis ICD Codes: A41.9 - Sepsis, unspecified organism SNOMED: 80257180 (4) Respiratory distress ICD Codes: R06.03 - Acute respiratory distress SNOMED: 715118495 (5) Altered level of consciousness ICD Codes: R40.4 - Transient alteration of awareness SNOMED: 3352535 Status: stable, progressing Assessment/Plan: lasix iv abx per id follow up cultures monitor cxr- repeat today wean o2 may need home o2 d/w dtr d/w Subjective ROS Limited/Unobtainable: No Constitutional: Reports: fever, malaise, weakness HEENT: Reports: no symptoms Cardiovascular: Reports: no symptoms Respiratory: Reports: cough Gastrointestinal/Abdominal: Reports: no symptoms Genitourinary: Reports: no symptoms Neurologic/Psychiatric: Reports: no symptoms Endocrine: Reports: no symptoms Hematologic/Lymphatic: Reports: no symptoms Allergies: Coded Allergies: No Known Allergies (Unverified , 03/09/19) All Systems: reviewed and negative except above Subjective no overnight events. off bipap on NC. at the bedside. feels pt is doing better. cxr noted. Objective Last 24 Hour Vital Signs Date Time Temp Pulse Resp B/P (MAP) Pulse Ox O2 Delivery O2 Flow Rate FiO2 03/14/19 08:00 97.7 73 18 123/60 (81) 97 03/14/19 08:00 69 03/14/19 06:44 96 Nasal Cannula 3.0 32 03/14/19 06:23 98.4 03/14/19 04:00 98.6 70 18 114/56 (75) 96 03/14/19 04:00 71 03/14/19 00:00 79 03/14/19 00:00 98.4 80 18 122/71 (88) 95 03/13/19 21:55 98 Nasal Cannula 3.0 32 03/13/19 20:00 88 03/13/19 20:00 98.2 85 18 147/75 (99) 95 03/13/19 16:00 97.6 74 20 129/73 (91) 100 03/13/19 15:30 72 Intake and Output 03/13/19 03/14/19 19:00 07:00 Intake Total 350 ml Balance 350 ml Intake Oral 350 ml # Voids 3 2 # Bowel Movements 2 Laboratory Tests 03/14/19 05:45: White Blood Count 6.6, Red Blood Count 4.62L, Hemoglobin 14.1L, Hematocrit 43.0 , Mean Corpuscular Volume 93, Mean Corpuscular Hemoglobin 30.4, Mean Corpuscular Hemoglobin Concent 32.7, Red Cell Distribution Width 13.1, Platelet Count 453H, Mean Platelet Volume 6.3L, Neutrophils (%) (Auto) 57.4, Lymphocytes (%) (Auto) 20.0, Monocytes (%) (Auto) 15.7H, Eosinophils (%) (Auto) 5.6H, Basophils (%) (Auto) 1.3, Sodium Level 137, Potassium Level 3.5, Chloride Level 98, Carbon Dioxide Level 35H, Anion Gap 4L, Blood Urea Nitrogen 22H, Creatinine 1.2, Estimat Glomerular Filtration Rate , Glucose Level 93, Calcium Level 9.1, Total Bilirubin 0.4, Aspartate Amino Transf (AST/SGOT) 35, Alanine Aminotransferase (ALT/SGPT) 36, Alkaline Phosphatase 91, Total Protein 6.7, Albumin 2.6L, Globulin 4.1, Albumin/Globulin Ratio 0.6L Height (Feet): 5 Height (Inches): 8.00 Weight (Pounds): 151 Objective General Appearance: WD/WN, alert Neck: supple Cardiovascular: normal rate, regular rhythm Respiratory/Chest: chest wall non-tender, lungs clear, normal breath sounds, no respiratory distress, no accessory muscle use Abdomen: normal bowel sounds, non tender, soft, no organomegaly, no mass Edema: no edema noted Arm (L), no edema noted Arm (R), no edema noted Leg (L), no edema noted Leg (R), no edema noted Pedal (L), no edema noted Pedal (R), no edema noted Generalized 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
[2019-03-14 16:00] VITALS: BP 121/65
--- NOTE | 2019-03-14 16:18 | Pulmonology Progress Note ---
Assessment/Plan Assessment/Plan Pulmonary Progress Note 83-year-old female presents with increase in shortness of breath. The patient apparently recently hospitalized in an outside hospital for pneumonia and respiratory distress. She was in respiratory distress and placed on a BiPAP. CXR suggestive of CHF and pulmonary edema. Patient with acute respiratory acidosis. She also had an elevated troponin of 0.079 and natriuretic peptide level was 7000. Patient admitted and started on diuresis. On BIPAP PRN PAST MEDICAL HISTORY: congestive heart failure, hypertension, hyperlipidemia, and gout PHYSICAL EXAMINATION: Vital signs noted NAD on oxygen GENERAL: The patient is well developed, in no apparent distress. HEART: Regular rate and rhythm. without MRG LUNGS: reduced breath sounds bilaterally. some rhonchi ABDOMEN: Soft, nontender, and nondistended. no HSM EXTREMITIES: Without clubbing, cyanosis, or edema. NEURO: nonfocal and confused Labs Noted Test 03/09/19 01:55 03/09/19 02:01 03/09/19 03:00 03/09/19 03:55 White Blood Count 13.7 K/UL (4.8-10.8) Red Blood Count 4.63 M/UL (4.70-6.10) Hemoglobin 14.1 G/DL (14.2-18.0) Hematocrit 43.7 % (42.0-52.0) Mean Corpuscular Volume 94 FL (80-99) Mean Corpuscular Hemoglobin 30.6 PG (27.0-31.0) Mean Corpuscular Hemoglobin Concent 32.4 G/DL (32.0-36.0) Red Cell Distribution Width 13.9 % (11.6-14.8) Platelet Count 260 K/UL (150-450) Mean Platelet Volume 7.5 FL (6.5-10.1) Neutrophils (%) (Auto) % (45.0-75.0) Lymphocytes (%) (Auto) % (20.0-45.0) Monocytes (%) (Auto) % (1.0-10.0) Eosinophils (%) (Auto) % (0.0-3.0) Basophils (%) (Auto) % (0.0-2.0) Prothrombin Time 9.9 SEC (9.30-11.50) Prothromb Time International Ratio 0.9 (0.9-1.1) Activated Partial Thromboplast Time 29 SEC (23-33) Sodium Level 137 MMOL/L (136-145) Potassium Level 5.1 MMOL/L (3.5-5.1) Chloride Level 98 MMOL/L (98-107) Carbon Dioxide Level 34 MMOL/L (21-32) Anion Gap 5 mmol/L (5-15) Blood Urea Nitrogen 32 mg/dL (7-18) Creatinine 1.7 MG/DL (0.55-1.30) Estimat Glomerular Filtration Rate mL/min (>60) Glucose Level 185 MG/DL (74-106) Lactic Acid Level 1.90 mmol/L (0.4-2.0) Calcium Level 8.5 MG/DL (8.5-10.1) Total Bilirubin 0.4 MG/DL (0.2-1.0) Aspartate Amino Transf (AST/SGOT) 46 U/L (15-37) Alanine Aminotransferase (ALT/SGPT) 45 U/L (12-78) Alkaline Phosphatase 181 U/L (46-116) Total Creatine Kinase 32 U/L (26-308) Creatine Kinase MB 0.8 NG/ML (0.0-3.6) Creatine Kinase MB Relative Index 2.5 Troponin I 0.079 ng/mL (0.000-0.056) Pro-B-Type Natriuretic Peptide 7047 pg/mL (0-125) Total Protein 6.7 G/DL (6.4-8.2) Albumin 3.1 G/DL (3.4-5.0) Globulin 3.6 g/dL Albumin/Globulin Ratio 0.9 (1.0-2.7) Lipase 84 U/L (73-393) Arterial Blood pH 7.252 (7.350-7.450) 7.342 (7.350-7.450) Arterial Blood Partial Pressure CO2 66.3 mmHg (35.0-45.0) 53.7 mmHg (35.0-45.0) Arterial Blood Partial Pressure O2 310.2 mmHg (75.0-100.0) 65.9 mmHg (75.0-100.0) Arterial Blood HCO3 28.6 mmol/L (22.0-26.0) 28.5 mmol/L (22.0-26.0) Arterial Blood Oxygen Saturation 99.2 % (95-100) 90.8 % (95-100) Arterial Blood Base Excess -0.1 (-2-2) 1.7 (-2-2) Sharif Test Positive Positive Urine Color Pale yellow Urine Appearance Clear Urine pH 5 (4.5-8.0) Urine Specific Beulah 1.015 (1.005-1.035) Urine Protein Negative (NEGATIVE) Urine Glucose (UA) Negative (NEGATIVE) Urine Ketones Negative (NEGATIVE) Urine Blood Negative (NEGATIVE) Urine Nitrite Negative (NEGATIVE) Urine Bilirubin Negative (NEGATIVE) Urine Urobilinogen Normal MG/DL (0.0-1.0) Urine Leukocyte Esterase Negative (NEGATIVE) Test 03/09/19 07:39 03/09/19 08:40 03/10/19 03:50 Arterial Blood pH 7.287 (7.350-7.450) 7.356 (7.350-7.450) Arterial Blood Partial Pressure CO2 58.9 mmHg (35.0-45.0) 47.9 mmHg (35.0-45.0) Arterial Blood Partial Pressure O2 147.5 mmHg (75.0-100.0) 81.9 mmHg (75.0-100.0) Arterial Blood HCO3 27.5 mmol/L (22.0-26.0) 26.2 mmol/L (22.0-26.0) Arterial Blood Oxygen Saturation 98.1 % (95-100) 94.7 % (95-100) Arterial Blood Base Excess -0.2 (-2-2) 0.2 (-2-2) Sharif Test Positive Positive Sodium Level 139 MMOL/L (136-145) Potassium Level 3.7 MMOL/L (3.5-5.1) Chloride Level 98 MMOL/L (98-107) Carbon Dioxide Level 35 MMOL/L (21-32) Anion Gap 6 mmol/L (5-15) Blood Urea Nitrogen 30 mg/dL (7-18) Creatinine 1.3 MG/DL (0.55-1.30) Estimat Glomerular Filtration Rate mL/min (>60) Glucose Level 89 MG/DL (74-106) Calcium Level 8.4 MG/DL (8.5-10.1) Total Bilirubin 0.5 MG/DL (0.2-1.0) Aspartate Amino Transf (AST/SGOT) 31 U/L (15-37) Alanine Aminotransferase (ALT/SGPT) 34 U/L (12-78) Alkaline Phosphatase 138 U/L (46-116) Total Protein 5.8 G/DL (6.4-8.2) Albumin 2.6 G/DL (3.4-5.0) Globulin 3.2 g/dL Albumin/Globulin Ratio 0.8 (1.0-2.7) Imaging: Noted ASSESSMENT: hypertension, ho pneumonia hyperlipidemia, congestive heart failure exacerbation respiratory failure, acute toxic metabolic encephalopathy hypoxemia pleural calcifications PLAN care as is diurese oxygen BIPAP and assess off repeat ABG repeat CXR hold on antibiotics aspiration precautions impression, plan, and exam edited and reviewed in detail care discussed with RN Subjective ROS Limited/Unobtainable: No Allergies: Coded Allergies: No Known Allergies (Unverified , 03/09/19) Objective Last 24 Hour Vital Signs Date Time Temp Pulse Resp B/P (MAP) Pulse Ox O2 Delivery O2 Flow Rate FiO2 03/14/19 12:36 Nasal Cannula 3.0 03/14/19 12:00 79 03/14/19 12:00 98.1 80 18 118/64 (82) 98 03/14/19 08:00 97.7 73 18 123/60 (81) 97 03/14/19 08:00 69 03/14/19 06:44 96 Nasal Cannula 3.0 32 03/14/19 06:23 98.4 03/14/19 04:00 98.6 70 18 114/56 (75) 96 03/14/19 04:00 71 03/14/19 00:00 79 03/14/19 00:00 98.4 80 18 122/71 (88) 95 03/13/19 21:55 98 Nasal Cannula 3.0 32 03/13/19 20:00 88 03/13/19 20:00 98.2 85 18 147/75 (99) 95 Intake and Output 03/13/19 03/14/19 19:00 07:00 Intake Total 350 ml Balance 350 ml Intake Oral 350 ml # Voids 3 2 # Bowel Movements 2 Laboratory Tests 03/14/19 05:45: White Blood Count 6.6, Red Blood Count 4.62L, Hemoglobin 14.1L, Hematocrit 43.0 , Mean Corpuscular Volume 93, Mean Corpuscular Hemoglobin 30.4, Mean Corpuscular Hemoglobin Concent 32.7, Red Cell Distribution Width 13.1, Platelet Count 453H, Mean Platelet Volume 6.3L, Neutrophils (%) (Auto) 57.4, Lymphocytes (%) (Auto) 20.0, Monocytes (%) (Auto) 15.7H, Eosinophils (%) (Auto) 5.6H, Basophils (%) (Auto) 1.3, Sodium Level 137, Potassium Level 3.5, Chloride Level 98, Carbon Dioxide Level 35H, Anion Gap 4L, Blood Urea Nitrogen 22H, Creatinine 1.2, Estimat Glomerular Filtration Rate , Glucose Level 93, Calcium Level 9.1, Total Bilirubin 0.4, Aspartate Amino Transf (AST/SGOT) 35, Alanine Aminotransferase (ALT/SGPT) 36, Alkaline Phosphatase 91, Total Protein 6.7, Albumin 2.6L, Globulin 4.1, Albumin/Globulin Ratio 0.6L Current Medications Medications (Trade) Dose Ordered Sig/Kala Route PRN Reason Start Time Stop Time Status Last Admin Dose Admin Atorvastatin Calcium (Lipitor) 10 mg BEDTIME ORAL 03/13/19 21:00 04/08/19 20:59 03/13/19 21:08 Clonidine HCl (Catapres Tab) 0.1 mg Q4H PRN ORAL For High Blood Pressure 03/12/19 22:00 04/08/19 21:59 Clopidogrel Bisulfate (Plavix) 75 mg DAILY ORAL 03/13/19 09:00 04/08/19 08:59 03/14/19 08:55 Furosemide (Lasix) 40 mg DAILY ORAL 03/13/19 09:00 04/10/19 08:59 03/14/19 08:55 Guaifenesin (Robitussin) 200 mg Q4H PRN ORAL For Cough 03/13/19 01:00 04/12/19 00:59 Heparin Sodium (Porcine) (Heparin 5000 units/ml) 5,000 units EVERY 12 HOURS SUBQ 03/13/19 09:00 04/08/19 08:59 03/14/19 08:59 Montelukast Sodium (Singulair) 10 mg QPM ORAL 03/13/19 16:30 04/08/19 16:29 Piperacillin Sod/ Tazobactam Sod 3.375 gm/Sodium Chloride 110 ml @ 27.5 mls/hr EVERY 8 HOURS IVPB 03/13/19 06:00 03/20/19 05:59 03/14/19 13:31 Pregabalin (Lyrica) 75 mg Q8HR ORAL 03/13/19 06:00 04/12/19 05:59 03/14/19 13:32 Tamsulosin HCl (Flomax) 0.4 mg DAILY ORAL 03/13/19 09:00 04/08/19 08:59 03/14/19 08:55 Temazepam (Restoril) 7.5 mg HSPRN PRN ORAL Insomnia 03/13/19 20:15 03/16/19 20:14 03/13/19 21:08 Luis Caballero MD Mar 14, 2019 16:18
[2019-03-14] MEDS: Montelukast 10mg tablet ORAL SCH (16:43)
--- NOTE | 2019-03-14 19:30 | NUR ---
NURSE NOTES: Received patient from NIKOLE FELIX. Will continue plan of care.
--- NOTE | 2019-03-14 19:37 | NUR ---
HAND-OFF: Report given to Krystal/RN, Patient is awake and alert, No acute distress noted. Family at bedside. Endorsed plan of care.
[2019-03-14 20:00] VITALS: BP 123/69
[2019-03-15] VITALS: BP 108/59
[2019-03-15 04:00] VITALS: BP 112/64
[2019-03-15] MEDS: Lyrica 75mg cap ORAL SCH ×3 (05:31→21:17)
[2019-03-15] MEDS: Piperacillin/Tazobactam 3.375 GM in NS 110 ML IVPB SCH ×3 (05:31→21:18)
--- NOTE | 2019-03-15 07:10 | NUR ---
HAND-OFF: Report given to NIKOLE FELIX.
--- NOTE | 2019-03-15 07:11 | NUR ---
NURSE NOTES: Received report from Krystal/RN, Patient is awake, lying semi-vera, no distress/SOB noted. at bedside. Checked IV, Patent, no bleeding or infiltration noted at this time. Bed in lowest position and locked, Call light within reach. All personal belonging within reach. Will continue plan of care.
[2019-03-15 08:00] VITALS: BP 123/64
[2019-03-15] MEDS: Tamsulosin 0.4mg cap ORAL SCH (08:21)
[2019-03-15] MEDS: Furosemide 40mg tab ORAL SCH (08:21)
[2019-03-15] MEDS: Heparin 5000 units/ml inj SUBQ SCH ×2 (08:25→21:26)
--- NOTE | 2019-03-15 09:22 | Infectious Diseases Prog Note ---
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 failure AMS CHF P; Continue Zosyn X 1 day Subjective ROS Limited/Unobtainable: Yes Constitutional: Reports: no symptoms Respiratory: Reports: productive cough Gastrointestinal/Abdominal: Reports: no symptoms Genitourinary: Reports: no symptoms Allergies: Coded Allergies: No Known Allergies (Unverified , 03/09/19) Objective Vital Signs Last 24 Hour Vital Signs Date Time Temp Pulse Resp B/P (MAP) Pulse Ox O2 Delivery O2 Flow Rate FiO2 03/15/19 08:00 98.1 73 18 123/64 (83) 98 03/15/19 07:21 97 Nasal Cannula 3.0 32 03/15/19 04:00 97.8 83 18 112/64 (80) 98 03/15/19 03:41 76 03/15/19 00:00 97.9 78 18 108/59 (75) 96 03/14/19 23:46 66 03/14/19 20:00 98.3 70 18 123/69 (87) 96 03/14/19 19:30 71 03/14/19 18:59 97 Nasal Cannula 3.0 32 03/14/19 16:00 98.0 78 19 121/65 (83) 98 03/14/19 16:00 77 03/14/19 12:36 Nasal Cannula 3.0 03/14/19 12:00 79 03/14/19 12:00 98.1 80 18 118/64 (82) 98 Height (Feet): 5 Height (Inches): 8.00 Weight (Pounds): 151 General Appearance: no acute distress HEENT: mucous membranes moist Respiratory/Chest: lungs clear, other - Oxygen by nasal cannula Cardiovascular: normal rate Abdomen: soft, non tender Extremities: no edema Neurologic/Psychiatric: alert, responsive Current Medications Medications (Trade) Dose Ordered Sig/Kala Route PRN Reason Start Time Stop Time Status Last Admin Dose Admin Atorvastatin Calcium (Lipitor) 10 mg BEDTIME ORAL 03/13/19 21:00 04/08/19 20:59 03/14/19 21:00 Clonidine HCl (Catapres Tab) 0.1 mg Q4H PRN ORAL For High Blood Pressure 03/12/19 22:00 04/08/19 21:59 Clopidogrel Bisulfate (Plavix) 75 mg DAILY ORAL 03/13/19 09:00 04/08/19 08:59 03/15/19 08:21 Furosemide (Lasix) 40 mg DAILY ORAL 03/13/19 09:00 04/10/19 08:59 03/15/19 08:21 Guaifenesin (Robitussin) 200 mg Q4H PRN ORAL For Cough 03/13/19 01:00 04/12/19 00:59 03/14/19 21:00 Heparin Sodium (Porcine) (Heparin 5000 units/ml) 5,000 units EVERY 12 HOURS SUBQ 03/13/19 09:00 04/08/19 08:59 03/15/19 08:25 Montelukast Sodium (Singulair) 10 mg QPM ORAL 03/13/19 16:30 04/08/19 16:29 03/14/19 16:43 Piperacillin Sod/ Tazobactam Sod 3.375 gm/Sodium Chloride 110 ml @ 27.5 mls/hr EVERY 8 HOURS IVPB 03/13/19 06:00 03/20/19 05:59 03/15/19 05:31 Pregabalin (Lyrica) 75 mg Q8HR ORAL 03/13/19 06:00 04/12/19 05:59 03/15/19 05:31 Tamsulosin HCl (Flomax) 0.4 mg DAILY ORAL 03/13/19 09:00 04/08/19 08:59 03/15/19 08:21 Temazepam (Restoril) 7.5 mg HSPRN PRN ORAL Insomnia 03/13/19 20:15 03/16/19 20:14 03/14/19 21:00 Piyush Berger MD Mar 15, 2019 09:21
--- NOTE | 2019-03-15 11:06 | General Progress Note ---
Assessment/Plan Problem List: (1) Hospital acquired PNA ICD Codes: J18.9 - Pneumonia, unspecified organism; Y95 - Nosocomial condition SNOMED: 873216109 (2) CHF (congestive heart failure), NYHA class IV ICD Codes: I50.9 - Heart failure, unspecified SNOMED: 413935985, 148410066 (3) Sepsis ICD Codes: A41.9 - Sepsis, unspecified organism SNOMED: 89750967 (4) Respiratory distress ICD Codes: R06.03 - Acute respiratory distress SNOMED: 168475640 (5) Altered level of consciousness ICD Codes: R40.4 - Transient alteration of awareness SNOMED: 3601413 Status: stable, progressing Assessment/Plan: lasix iv abx per id follow up cultures monitor cxr- repeat today wean o2 may need home o2 d/w dtr d/w Subjective ROS Limited/Unobtainable: No Constitutional: Reports: malaise, weakness HEENT: Reports: no symptoms Cardiovascular: Reports: no symptoms Respiratory: Reports: cough, shortness of breath Gastrointestinal/Abdominal: Reports: no symptoms Genitourinary: Reports: no symptoms Neurologic/Psychiatric: Reports: no symptoms Endocrine: Reports: no symptoms Hematologic/Lymphatic: Reports: anemia Allergies: Coded Allergies: No Known Allergies (Unverified , 03/09/19) All Systems: reviewed and negative except above Subjective no overnight events. no new complaints. at the bedside. feels pt is doing better. cxr noted. Objective Last 24 Hour Vital Signs Date Time Temp Pulse Resp B/P (MAP) Pulse Ox O2 Delivery O2 Flow Rate FiO2 03/15/19 08:00 73 03/15/19 08:00 98.1 73 18 123/64 (83) 98 03/15/19 07:21 97 Nasal Cannula 3.0 32 03/15/19 04:00 97.8 83 18 112/64 (80) 98 03/15/19 03:41 76 03/15/19 00:00 97.9 78 18 108/59 (75) 96 03/14/19 23:46 66 03/14/19 20:00 98.3 70 18 123/69 (87) 96 03/14/19 19:30 71 03/14/19 18:59 97 Nasal Cannula 3.0 32 03/14/19 16:00 98.0 78 19 121/65 (83) 98 03/14/19 16:00 77 03/14/19 12:36 Nasal Cannula 3.0 03/14/19 12:00 79 03/14/19 12:00 98.1 80 18 118/64 (82) 98 Intake and Output 03/14/19 03/15/19 18:59 06:59 Intake Total 800 ml 210.0 ml Output Total 600 ml Balance 800 ml -390.0 ml Intake Oral 800 ml 100 ml IV Total 110.0 ml Output Urine Total 600 ml Height (Feet): 5 Height (Inches): 8.00 Weight (Pounds): 148 Objective General Appearance: WD/WN, alert Neck: supple Cardiovascular: normal rate, regular rhythm Respiratory/Chest: chest wall non-tender, lungs clear, normal breath sounds, no respiratory distress, no accessory muscle use Abdomen: normal bowel sounds, non tender, soft, no organomegaly, no mass Edema: no edema noted Arm (L), no edema noted Arm (R), no edema noted Leg (L), no edema noted Leg (R), no edema noted Pedal (L), no edema noted Pedal (R), no edema noted 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
[2019-03-15 12:00] VITALS: BP 107/60
--- NOTE | 2019-03-15 12:37 | Cardiology Report ---
APPROVED REPORT EXAM: Two-dimensional and M-mode echocardiogram with Doppler and color Doppler. INDICATION Angina Pectoris M-Mode DIMENSIONS IVSd1.3 (0.7-1.1cm)Left Atrium (MM)3.9 (1.6-4.0cm) LVDd3.9 (3.5-5.6cm)Aortic Root2.7 (2.0-3.7cm) PWd1.1 (0.7-1.1cm)Aortic Cusp Exc.1.3 (1.5-2.0cm) LVDs2.7 (2.5-4.0cm) PWs1.3 cm Normal left ventricular chamber size, systolic function and wall motion. Left ventricular ejection fraction estimated to be 60 %. Mild left ventricular hypertrophy. Anterior Echo-free space, may be due to pericardial fat or effusion. Left atrial chamber sizes is within normal limits. Moderate right atrial enlargement. Mild right ventricular enlargement. Aortic valve calcification with decreased cusp excursion c/w aortic stenosis. Thickened mitral valve leaflets with normal excursion. Heavy mitral annulus and aortic root calcification. Pulmonic valve not well visualized. Normal tricuspid valve structure. IVC dilated at 2.2 cm without physiological collapse, suggestive of increased RA pressure. A color flow and spectral Doppler study was performed and revealed: Mild aortic insufficiency. Peak aortic valve gradient of 34 mmHg and a mean of 20 mmHg. Aortic valve area 1.3 cm2 calculated by continuity equation suggestive of moderate aortic stenosis. Mild to moderate mitral regurgitation. Mitral diastolic velocities suggest mild left ventricular diastolic dysfunction (Grade I). Mild to moderate tricuspid regurgitation. Tricuspid systolic velocities suggests peak right ventricular systolic pressure of 52 mmHg, consistent with moderate pulmonary hypertension. Mild pulmonic regurgitation present.
--- NOTE | 2019-03-15 15:10 | NUR ---
NURSE NOTES: called Dr. Daniels office and left a message regarding pCO2 58.8.
[2019-03-15 16:00] VITALS: BP 133/64
[2019-03-15] MEDS: Montelukast 10mg tablet ORAL SCH (17:01)
--- NOTE | 2019-03-15 18:15 | Progress Note ---
DATE: 03/09/2019 CARDIOLOGY PROGRESS NOTE SUBJECTIVE: The patient is less short of breath. He continues on antimicrobials. Oxygenation has improved and weaning off nasal cannula is ongoing. OBJECTIVE: VITAL SIGNS: Blood pressure 123/64, pulse 73, respirations, and afebrile. Monitored rhythm, sinus. LUNGS: Diminished breath sounds with few rales. No wheezes. HEART: Regular rhythm and rate. Normal S1, S2 with a 1/6 systolic ejection murmur at the base. ABDOMEN: Soft and nontender. EXTREMITIES: Without edema. LABORATORY DATA: ABG today pH 7.38, pCO2 59, and pO2 137. Chest x-ray is pending. IMPRESSION: 1. Healthcare-acquired pneumonia. 2. Interstitial lung disease. 3. Acute on chronic diastolic congestive heart failure, improving. 4. Degenerative valve disease with moderate aortic stenosis. 5. Mitral regurgitation and tricuspid regurgitation. 6. Moderate pulmonary hypertension. 7. Acute on chronic respiratory acidosis, improving. PLAN: 1. Follow up chest x-ray. 2. Continue antimicrobials. 3. Respiratory hygiene. 4. Adjust anti-failure regimen. 5. Taper off oxygen. 6. Repeat natriuretic peptide assay. 7. Finalize outpatient care plan and medication regimen. Luis Daniels M.D. DR: MIKALA JOB#: [id number] CC:
--- NOTE | 2019-03-15 19:22 | NUR ---
HAND-OFF: Report given to Clay/RN, Patient is awake and alert, no acute distress/SOB noted, in stable condition. at bedside. Endorsed plan of care.
--- NOTE | 2019-03-15 19:29 | Pulmonology Progress Note ---
Assessment/Plan Assessment/Plan Pulmonary Progress Note 83-year-old male presents with increase in shortness of breath. The patient apparently recently hospitalized in an outside hospital for pneumonia and respiratory distress. She was in respiratory distress and placed on a BiPAP. CXR suggestive of CHF and pulmonary edema. Patient with acute respiratory acidosis. He also had an elevated troponin of 0.079 and natriuretic peptide level was 7000. Patient admitted and started on diuresis. On BIPAP PRN. Less SOB PAST MEDICAL HISTORY: congestive heart failure, hypertension, hyperlipidemia, and gout PHYSICAL EXAMINATION: Vital signs noted NAD on oxygen GENERAL: The patient is well developed, in no apparent distress. HEART: Regular rate and rhythm. without MRG LUNGS: reduced breath sounds bilaterally. some rhonchi ABDOMEN: Soft, nontender, and nondistended. no HSM EXTREMITIES: Without clubbing, cyanosis, or edema. NEURO: nonfocal and confused Labs Noted Test 03/09/19 01:55 03/09/19 02:01 03/09/19 03:00 03/09/19 03:55 White Blood Count 13.7 K/UL (4.8-10.8) Red Blood Count 4.63 M/UL (4.70-6.10) Hemoglobin 14.1 G/DL (14.2-18.0) Hematocrit 43.7 % (42.0-52.0) Mean Corpuscular Volume 94 FL (80-99) Mean Corpuscular Hemoglobin 30.6 PG (27.0-31.0) Mean Corpuscular Hemoglobin Concent 32.4 G/DL (32.0-36.0) Red Cell Distribution Width 13.9 % (11.6-14.8) Platelet Count 260 K/UL (150-450) Mean Platelet Volume 7.5 FL (6.5-10.1) Neutrophils (%) (Auto) % (45.0-75.0) Lymphocytes (%) (Auto) % (20.0-45.0) Monocytes (%) (Auto) % (1.0-10.0) Eosinophils (%) (Auto) % (0.0-3.0) Basophils (%) (Auto) % (0.0-2.0) Prothrombin Time 9.9 SEC (9.30-11.50) Prothromb Time International Ratio 0.9 (0.9-1.1) Activated Partial Thromboplast Time 29 SEC (23-33) Sodium Level 137 MMOL/L (136-145) Potassium Level 5.1 MMOL/L (3.5-5.1) Chloride Level 98 MMOL/L (98-107) Carbon Dioxide Level 34 MMOL/L (21-32) Anion Gap 5 mmol/L (5-15) Blood Urea Nitrogen 32 mg/dL (7-18) Creatinine 1.7 MG/DL (0.55-1.30) Estimat Glomerular Filtration Rate mL/min (>60) Glucose Level 185 MG/DL (74-106) Lactic Acid Level 1.90 mmol/L (0.4-2.0) Calcium Level 8.5 MG/DL (8.5-10.1) Total Bilirubin 0.4 MG/DL (0.2-1.0) Aspartate Amino Transf (AST/SGOT) 46 U/L (15-37) Alanine Aminotransferase (ALT/SGPT) 45 U/L (12-78) Alkaline Phosphatase 181 U/L (46-116) Total Creatine Kinase 32 U/L (26-308) Creatine Kinase MB 0.8 NG/ML (0.0-3.6) Creatine Kinase MB Relative Index 2.5 Troponin I 0.079 ng/mL (0.000-0.056) Pro-B-Type Natriuretic Peptide 7047 pg/mL (0-125) Total Protein 6.7 G/DL (6.4-8.2) Albumin 3.1 G/DL (3.4-5.0) Globulin 3.6 g/dL Albumin/Globulin Ratio 0.9 (1.0-2.7) Lipase 84 U/L (73-393) Arterial Blood pH 7.252 (7.350-7.450) 7.342 (7.350-7.450) Arterial Blood Partial Pressure CO2 66.3 mmHg (35.0-45.0) 53.7 mmHg (35.0-45.0) Arterial Blood Partial Pressure O2 310.2 mmHg (75.0-100.0) 65.9 mmHg (75.0-100.0) Arterial Blood HCO3 28.6 mmol/L (22.0-26.0) 28.5 mmol/L (22.0-26.0) Arterial Blood Oxygen Saturation 99.2 % (95-100) 90.8 % (95-100) Arterial Blood Base Excess -0.1 (-2-2) 1.7 (-2-2) Sharif Test Positive Positive Urine Color Pale yellow Urine Appearance Clear Urine pH 5 (4.5-8.0) Urine Specific Howell 1.015 (1.005-1.035) Urine Protein Negative (NEGATIVE) Urine Glucose (UA) Negative (NEGATIVE) Urine Ketones Negative (NEGATIVE) Urine Blood Negative (NEGATIVE) Urine Nitrite Negative (NEGATIVE) Urine Bilirubin Negative (NEGATIVE) Urine Urobilinogen Normal MG/DL (0.0-1.0) Urine Leukocyte Esterase Negative (NEGATIVE) Test 03/09/19 07:39 03/09/19 08:40 03/10/19 03:50 Arterial Blood pH 7.287 (7.350-7.450) 7.356 (7.350-7.450) Arterial Blood Partial Pressure CO2 58.9 mmHg (35.0-45.0) 47.9 mmHg (35.0-45.0) Arterial Blood Partial Pressure O2 147.5 mmHg (75.0-100.0) 81.9 mmHg (75.0-100.0) Arterial Blood HCO3 27.5 mmol/L (22.0-26.0) 26.2 mmol/L (22.0-26.0) Arterial Blood Oxygen Saturation 98.1 % (95-100) 94.7 % (95-100) Arterial Blood Base Excess -0.2 (-2-2) 0.2 (-2-2) Sharif Test Positive Positive Sodium Level 139 MMOL/L (136-145) Potassium Level 3.7 MMOL/L (3.5-5.1) Chloride Level 98 MMOL/L (98-107) Carbon Dioxide Level 35 MMOL/L (21-32) Anion Gap 6 mmol/L (5-15) Blood Urea Nitrogen 30 mg/dL (7-18) Creatinine 1.3 MG/DL (0.55-1.30) Estimat Glomerular Filtration Rate mL/min (>60) Glucose Level 89 MG/DL (74-106) Calcium Level 8.4 MG/DL (8.5-10.1) Total Bilirubin 0.5 MG/DL (0.2-1.0) Aspartate Amino Transf (AST/SGOT) 31 U/L (15-37) Alanine Aminotransferase (ALT/SGPT) 34 U/L (12-78) Alkaline Phosphatase 138 U/L (46-116) Total Protein 5.8 G/DL (6.4-8.2) Albumin 2.6 G/DL (3.4-5.0) Globulin 3.2 g/dL Albumin/Globulin Ratio 0.8 (1.0-2.7) Imaging: Noted ASSESSMENT: hypertension, ho pneumonia hyperlipidemia, congestive heart failure exacerbation respiratory failure, acute toxic metabolic encephalopathy hypoxemia pleural calcifications PLAN care as is diurese oxygen BIPAP and assess off repeat ABG noted hold on antibiotics aspiration precautions impression, plan, and exam edited and reviewed in detail care discussed with RN CXR: Airspace opacities with underlying honeycombing are seen in the right upper lobe. Pleural calcifications are again demonstrated on the right. There is a calcified granuloma at the right lung base. There is stable blunting of right costophrenic sulcus. There is some atelectasis versus scarring at the left lateral lung base. Findings are unchanged Impression: Unchanged, over one day, findings as above. Subjective ROS Limited/Unobtainable: No Allergies: Coded Allergies: No Known Allergies (Unverified , 03/09/19) Objective Last 24 Hour Vital Signs Date Time Temp Pulse Resp B/P (MAP) Pulse Ox O2 Delivery O2 Flow Rate FiO2 03/15/19 16:00 63 03/15/19 16:00 97.8 63 18 133/64 (87) 98 03/15/19 12:00 64 03/15/19 12:00 97.9 64 18 107/60 (76) 98 03/15/19 11:16 Nasal Cannula 3.0 03/15/19 08:00 73 03/15/19 08:00 98.1 73 18 123/64 (83) 98 03/15/19 07:21 97 Nasal Cannula 3.0 32 03/15/19 04:00 97.8 83 18 112/64 (80) 98 03/15/19 03:41 76 03/15/19 00:00 97.9 78 18 108/59 (75) 96 03/14/19 23:46 66 03/14/19 20:00 98.3 70 18 123/69 (87) 96 03/14/19 19:30 71 Intake and Output 03/14/19 03/15/19 19:00 07:00 Intake Total 800 ml 210.0 ml Output Total 600 ml Balance 800 ml -390.0 ml Intake Oral 800 ml 100 ml IV Total 110.0 ml Output Urine Total 600 ml Laboratory Tests 03/15/19 12:35: Arterial Blood pH 7.377, Arterial Blood Partial Pressure CO2 58.8*H, Arterial Blood Partial Pressure O2 137.7H, Arterial Blood HCO3 33.8H, Arterial Blood Oxygen Saturation 98.0, Arterial Blood Base Excess 6.6H, Sharif Test Positive Current Medications Medications (Trade) Dose Ordered Sig/Kala Route PRN Reason Start Time Stop Time Status Last Admin Dose Admin Atorvastatin Calcium (Lipitor) 10 mg BEDTIME ORAL 03/13/19 21:00 04/08/19 20:59 03/14/19 21:00 Clonidine HCl (Catapres Tab) 0.1 mg Q4H PRN ORAL For High Blood Pressure 03/12/19 22:00 04/08/19 21:59 Clopidogrel Bisulfate (Plavix) 75 mg DAILY ORAL 03/13/19 09:00 04/08/19 08:59 03/15/19 08:21 Furosemide (Lasix) 40 mg DAILY ORAL 03/13/19 09:00 04/10/19 08:59 03/15/19 08:21 Guaifenesin (Robitussin) 200 mg Q4H PRN ORAL For Cough 03/13/19 01:00 04/12/19 00:59 03/14/19 21:00 Heparin Sodium (Porcine) (Heparin 5000 units/ml) 5,000 units EVERY 12 HOURS SUBQ 03/13/19 09:00 04/08/19 08:59 03/15/19 08:25 Montelukast Sodium (Singulair) 10 mg QPM ORAL 03/13/19 16:30 04/08/19 16:29 03/15/19 17:01 Piperacillin Sod/ Tazobactam Sod 3.375 gm/Sodium Chloride 110 ml @ 27.5 mls/hr EVERY 8 HOURS IVPB 03/13/19 06:00 03/20/19 05:59 03/15/19 14:57 Pregabalin (Lyrica) 75 mg Q8HR ORAL 03/13/19 06:00 04/12/19 05:59 03/15/19 14:56 Tamsulosin HCl (Flomax) 0.4 mg DAILY ORAL 03/13/19 09:00 04/08/19 08:59 03/15/19 08:21 Temazepam (Restoril) 7.5 mg HSPRN PRN ORAL Insomnia 03/13/19 20:15 03/16/19 20:14 03/14/19 21:00 Luis Caballero MD Mar 15, 2019 19:29
--- NOTE | 2019-03-15 19:38 | NUR ---
NURSE NOTES: Pt received from NIKOLE Garcia alert and oriented x4. No acute s/s of distress noted on 2L NC, sitting at side of bed with at bedside. IV site asymptomatic and patent on L fa 22g, saline lock. Bed in lowest position, call light and belongings within reach.
--- NOTE | 2019-03-15 19:39 | NUR ---
NURSE NOTES: Left message with Dr. Caballero regarding ABG results 03/15. No new orders received.
--- NOTE | 2019-03-15 19:45 | Consultation ---
DATE OF CONSULTATION: 03/14/2019 CARDIOLOGY CONSULTATION CONSULTING PHYSICIAN: Luis Daniels M.D. REFERRING PHYSICIAN: Luis Forrester M.D. REASON FOR CONSULTATION: Evaluation for congestive heart failure. HISTORY OF PRESENT ILLNESS: This 83-year-old [place] male was admitted to the hospital several days ago. He presented to the hospital from home complaining of shortness of breath. He had recently been treated for pneumonia at an outside facility. In the emergency room, the patient required BiPAP support and was noted to have respiratory acidosis with radiographic evidence of congestive heart failure and elevated natriuretic peptide assay of 7000. Troponin level was borderline elevated as well. Since admission, diuresis, antimicrobials, and respiratory hygiene have been initiated, mild improvement has been noted. I have been asked to assist with further cardiovascular care. The patient also had an echocardiogram performed since admission that revealed normal ejection fraction, mild aortic insufficiency, moderate aortic stenosis with area of 1.3 cm2, mild to moderate mitral regurgitation, and mild to moderate tricuspid regurgitation with moderate pulmonary hypertension with right ventricular systolic pressure was estimated at 52 mmHg. PAST MEDICAL HISTORY: Hypertension, hyperlipidemia, hyperuricemia, history of gout, and congestive heart failure. ALLERGIES: None. FAMILY HISTORY: Noncontributory. SOCIAL HISTORY: No record of smoking, alcohol, or substance abuse. MEDICATIONS: Prior to admission, reviewed and reconciled. Current medication regimen reviewed in the MAR. REVIEW OF SYSTEMS: Not obtainable reliably from the patient at this time due to language barrier. Records have been reviewed and pertinent data outlined above. PHYSICAL EXAMINATION: VITAL SIGNS: Blood pressure 123/69, pulse 70, respirations 18 and afebrile. Oxygen saturation on 3 L 96% to 98%. HEENT: Conjunctivae are pink. Oropharynx clear. NECK: Supple. Jugular venous pressure normal. No accessory muscle use. LUNGS: Bilateral breath sounds. Rhonchi at the bases, right greater than left. HEART: Regular rhythm and rate. Normal S1, S2 with a 2/6 systolic ejection murmur at the base . ABDOMEN: Soft and nontender. EXTREMITIES: No edema. NEUROLOGIC: Nonfocal. LABORATORY DATA: Sputum culture revealed Yumiko. Sodium 137, potassium 3.5, bicarb 35, BUN 22, and creatinine 1.2. Albumin 2.6. White count 6.6 and hemoglobin 14.1. Chest x-ray yesterday revealed airspace opacity, honeycombing in the right upper lobe, pleural calcifications, right lung calcified granuloma. IMPRESSION: 1. Chronic lung disease. 2. Healthcare-acquired pneumonia. 3. Acute on chronic respiratory acidosis. 4. Acute on chronic diastolic congestive heart failure, now clinically compensated. 5. Moderate pulmonary hypertension. 6. Degenerative valve disease with moderate aortic stenosis. 7. Mitral and tricuspid insufficiency. 8. History of hypertension. 9. Acute myocardial ischemia, resolved. PLAN: 1. Respiratory hygiene. 2. Antimicrobials. 3. Cautious diuresis. 4. Avoid tight blood pressure control. 5. Recheck natriuretic peptide assay. 6. DVT prophylaxis. 7. Check room air oxygen saturation. 8. Antimicrobials per Infectious Disease senior billing consultant. 9. Discharge planning to follow. Luis Daniels M.D. DR: CHUNG JOB#: [id number] CC:
[2019-03-15 20:00] VITALS: BP 122/69
[2019-03-16] VITALS: BP 110/65
--- NOTE | 2019-03-16 03:52 | NUR ---
NURSE NOTES: Pt currently resting in bed, sitting up with 2L NC saturating at 97% with no acute s/s of distress noted. IV site asymptomatic and patent on L fa 22g, saline lock. at bedside. Belongings and call light within reach.
[2019-03-16 04:00] VITALS: BP 114/64
[2019-03-16] MEDS: Piperacillin/Tazobactam 3.375 GM in NS 110 ML IVPB SCH (05:34)
[2019-03-16] MEDS: Lyrica 75mg cap ORAL SCH ×3 (05:34→21:57)
[2019-03-16 07:20] LABS: BASOPHILS % (AUTO) 1.8 % (0.0-2.0); EOSINOPHILS % (AUTO) 2.4 % (0.0-3.0); HEMATOCRIT 41.5 % (42.0-52.0); HEMOGLOBIN 13.5 G/DL (14.2-18.0); MEAN CORPUSCULAR VOLUME 94 FL (80-99); MONOCYTES % (AUTO) 13.1 % (1.0-10.0); NEUTROPHILS % (AUTO) 58.7 % (45.0-75.0); PLATELET COUNT 470 K/UL (150-450); RED BLOOD COUNT 4.43 M/UL (4.70-6.10); RED CELL DISTRIBUTION WIDTH 13.2 % (11.6-14.8); WHITE BLOOD COUNT 7.2 K/UL (4.8-10.8)
--- NOTE | 2019-03-16 07:30 | NUR ---
HAND-OFF: Report given to NIKOLE Gonzalez. No acute s/s of distress noted.
[2019-03-16 07:38] LABS: ALANINE AMINOTRANSFERASE 35 U/L (12-78); ALBUMIN 2.7 G/DL (3.4-5.0); ALBUMIN/GLOBULIN RATIO 0.7 (1.0-2.7); ALKALINE PHOSPHATASE 81 U/L (46-116); ANION GAP -2 mmol/L (5-15); ASPARTATE AMINO TRANSFERASE 35 U/L (15-37); BILIRUBIN,TOTAL 0.3 MG/DL (0.2-1.0); BLOOD UREA NITROGEN 19 mg/dL (7-18); CALCIUM 8.8 MG/DL (8.5-10.1); CARBON DIOXIDE 32 MMOL/L (21-32); CHLORIDE 102 MMOL/L (98-107); CREATININE 1.1 MG/DL (0.55-1.30); POTASSIUM 3.8 MMOL/L (3.5-5.1); SODIUM 132 MMOL/L (136-145)
--- NOTE | 2019-03-16 07:54 | NUR ---
NURSE NOTES: Received report from NIKOLE Williamson. Patient in bed resting, no active s/s cardiac, respiratory distress noticed at this time. Patient AOx4, on 2L oxygen via NC. Endorsed tried tapered off oxygen per Dr. Daniels, patient O2 sat on RA 85%, O2 sat on 1L 91%, 94% on 2L oxygen. IV on left FA 22G, asymptomatic, patent, intact. Family member at the bedside. Bed in lowest position, side rails upx2, call light within reach. Will continue to monitor.
[2019-03-16 08:00] VITALS: BP 118/76
[2019-03-16] MEDS: Tamsulosin 0.4mg cap ORAL SCH (08:11)
[2019-03-16] MEDS: Furosemide 40mg tab ORAL SCH (08:11)
--- NOTE | 2019-03-16 08:13 | Pulmonology Progress Note ---
Assessment/Plan Assessment/Plan ASSESSMENT: hypertension, ho pneumonia hyperlipidemia, congestive heart failure exacerbation respiratory failure, acute toxic metabolic encephalopathy hypoxemia pleural calcifications PLAN care as is for now diurese and monitor oxygen low flow BIPAP -dc monitor acid base repeat CXR - mostly chronic changes dc planning aspiration precautions impression, plan, and exam edited and reviewed in detail care discussed with RN Subjective Allergies: Coded Allergies: No Known Allergies (Unverified , 03/09/19) Subjective comfortable on NC no distress imaging and cultures reviewed Objective Last 24 Hour Vital Signs Date Time Temp Pulse Resp B/P (MAP) Pulse Ox O2 Delivery O2 Flow Rate FiO2 03/16/19 04:00 81 03/16/19 04:00 97.7 64 17 114/64 (81) 98 03/16/19 00:00 97.8 70 17 110/65 (80) 98 03/16/19 00:00 68 03/15/19 21:15 68 16 99 Nasal Cannula 3.0 32 03/15/19 20:40 99 Nasal Cannula 3.0 32 03/15/19 20:00 97.6 65 17 122/69 (86) 98 03/15/19 20:00 67 03/15/19 16:00 63 03/15/19 16:00 97.8 63 18 133/64 (87) 98 03/15/19 12:00 64 03/15/19 12:00 97.9 64 18 107/60 (76) 98 03/15/19 11:16 Nasal Cannula 3.0 Intake and Output 03/15/19 03/16/19 19:00 07:00 Intake Total 1800 ml 260.0 ml Balance 1800 ml 260.0 ml Intake Oral 1800 ml 150 ml IV Total 110.0 ml # Voids 4 3 # Bowel Movements 1 Objective WDWN NAD on oxygen reduced breath sounds bilaterally without rhonchi or wheeze [id number] without MRG NABS nontender no HSM no CCE nonfocal alert Laboratory Tests 03/15/19 12:35: Arterial Blood pH 7.377, Arterial Blood Partial Pressure CO2 58.8*H, Arterial Blood Partial Pressure O2 137.7H, Arterial Blood HCO3 33.8H, Arterial Blood Oxygen Saturation 98.0, Arterial Blood Base Excess 6.6H, Sharif Test Positive 03/16/19 06:37: White Blood Count 7.2, Red Blood Count 4.43L, Hemoglobin 13.5L, Hematocrit 41.5L , Mean Corpuscular Volume 94, Mean Corpuscular Hemoglobin 30.6, Mean Corpuscular Hemoglobin Concent 32.6, Red Cell Distribution Width 13.2, Platelet Count 470H, Mean Platelet Volume 6.6, Neutrophils (%) (Auto) 58.7, Lymphocytes ( %) (Auto) 24.0, Monocytes (%) (Auto) 13.1H, Eosinophils (%) (Auto) 2.4, Basophils (%) (Auto) 1.8, Sodium Level 132L, Potassium Level 3.8, Chloride Level 102, Carbon Dioxide Level 32, Anion Gap -2L, Blood Urea Nitrogen 19H, Creatinine 1.1, Estimat Glomerular Filtration Rate , Glucose Level 97, Calcium Level 8.8, Magnesium Level 2.1, Total Bilirubin 0.3, Aspartate Amino Transf (AST /SGOT) 35, Alanine Aminotransferase (ALT/SGPT) 35, Alkaline Phosphatase 81, Troponin I 0.003, Pro-B-Type Natriuretic Peptide 291H, Total Protein 6.4, Albumin 2.7L, Globulin 3.7, Albumin/Globulin Ratio 0.7L Current Medications Medications (Trade) Dose Ordered Sig/Kala Route PRN Reason Start Time Stop Time Status Last Admin Dose Admin Atorvastatin Calcium (Lipitor) 10 mg BEDTIME ORAL 03/13/19 21:00 04/08/19 20:59 03/15/19 21:17 Clonidine HCl (Catapres Tab) 0.1 mg Q4H PRN ORAL For High Blood Pressure 03/12/19 22:00 04/08/19 21:59 Clopidogrel Bisulfate (Plavix) 75 mg DAILY ORAL 03/13/19 09:00 04/08/19 08:59 03/15/19 08:21 Furosemide (Lasix) 40 mg DAILY ORAL 03/13/19 09:00 04/10/19 08:59 03/15/19 08:21 Guaifenesin (Robitussin) 200 mg Q4H PRN ORAL For Cough 03/13/19 01:00 04/12/19 00:59 03/14/19 21:00 Heparin Sodium (Porcine) (Heparin 5000 units/ml) 5,000 units EVERY 12 HOURS SUBQ 03/13/19 09:00 04/08/19 08:59 03/15/19 21:26 Montelukast Sodium (Singulair) 10 mg QPM ORAL 03/13/19 16:30 04/08/19 16:29 03/15/19 17:01 Piperacillin Sod/ Tazobactam Sod 3.375 gm/Sodium Chloride 110 ml @ 27.5 mls/hr EVERY 8 HOURS IVPB 03/13/19 06:00 03/20/19 05:59 03/16/19 05:34 Pregabalin (Lyrica) 75 mg Q8HR ORAL 03/13/19 06:00 04/12/19 05:59 03/16/19 05:34 Tamsulosin HCl (Flomax) 0.4 mg DAILY ORAL 03/13/19 09:00 04/08/19 08:59 03/15/19 08:21 Temazepam (Restoril) 7.5 mg HSPRN PRN ORAL Insomnia 03/13/19 20:15 03/16/19 20:14 03/15/19 21:17 Adrian Saleem MD Mar 16, 2019 08:13
[2019-03-16] MEDS: Heparin 5000 units/ml inj SUBQ SCH ×2 (08:14→22:07)
--- NOTE | 2019-03-16 11:00 | Infectious Diseases Prog Note ---
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 AMS Diastolic CHF P; Discontinue Zosyn Observe off antibiotic Subjective ROS Limited/Unobtainable: Yes Constitutional: Reports: no symptoms Allergies: Coded Allergies: No Known Allergies (Unverified , 03/09/19) Objective Vital Signs Last 24 Hour Vital Signs Date Time Temp Pulse Resp B/P (MAP) Pulse Ox O2 Delivery O2 Flow Rate FiO2 03/16/19 09:20 98 Nasal Cannula 2.0 28 03/16/19 09:20 70 18 98 Nasal Cannula 2.0 28 03/16/19 08:00 97.0 73 17 118/76 (90) 98 03/16/19 08:00 93 03/16/19 04:00 81 03/16/19 04:00 97.7 64 17 114/64 (81) 98 03/16/19 00:00 97.8 70 17 110/65 (80) 98 03/16/19 00:00 68 03/15/19 21:15 68 16 99 Nasal Cannula 3.0 32 03/15/19 20:40 99 Nasal Cannula 3.0 32 03/15/19 20:00 97.6 65 17 122/69 (86) 98 03/15/19 20:00 67 03/15/19 16:00 63 03/15/19 16:00 97.8 63 18 133/64 (87) 98 03/15/19 12:00 64 03/15/19 12:00 97.9 64 18 107/60 (76) 98 03/15/19 11:16 Nasal Cannula 3.0 Height (Feet): 5 Height (Inches): 8.00 Weight (Pounds): 147 General Appearance: no acute distress HEENT: mucous membranes moist Respiratory/Chest: lungs clear, other - oxygen by nasal cannula Cardiovascular: normal rate Abdomen: soft, non tender Extremities: no edema Neurologic/Psychiatric: other - sleeping Laboratory Tests Test 03/15/19 12:35 03/16/19 06:37 Arterial Blood pH 7.377 (7.350-7.450) Arterial Blood Partial Pressure CO2 58.8 mmHg (35.0-45.0) *H Arterial Blood Partial Pressure O2 137.7 mmHg (75.0-100.0) H Arterial Blood HCO3 33.8 mmol/L (22.0-26.0) H Arterial Blood Oxygen Saturation 98.0 % (95-100) Arterial Blood Base Excess 6.6 (-2-2) H Sharif Test Positive White Blood Count 7.2 K/UL (4.8-10.8) Red Blood Count 4.43 M/UL (4.70-6.10) L Hemoglobin 13.5 G/DL (14.2-18.0) L Hematocrit 41.5 % (42.0-52.0) L Mean Corpuscular Volume 94 FL (80-99) Mean Corpuscular Hemoglobin 30.6 PG (27.0-31.0) Mean Corpuscular Hemoglobin Concent 32.6 G/DL (32.0-36.0) Red Cell Distribution Width 13.2 % (11.6-14.8) Platelet Count 470 K/UL (150-450) H Mean Platelet Volume 6.6 FL (6.5-10.1) Neutrophils (%) (Auto) 58.7 % (45.0-75.0) Lymphocytes (%) (Auto) 24.0 % (20.0-45.0) Monocytes (%) (Auto) 13.1 % (1.0-10.0) H Eosinophils (%) (Auto) 2.4 % (0.0-3.0) Basophils (%) (Auto) 1.8 % (0.0-2.0) Sodium Level 132 MMOL/L (136-145) L Potassium Level 3.8 MMOL/L (3.5-5.1) Chloride Level 102 MMOL/L (98-107) Carbon Dioxide Level 32 MMOL/L (21-32) Anion Gap -2 mmol/L (5-15) L Blood Urea Nitrogen 19 mg/dL (7-18) H Creatinine 1.1 MG/DL (0.55-1.30) Estimat Glomerular Filtration Rate mL/min (>60) Glucose Level 97 MG/DL (74-106) Calcium Level 8.8 MG/DL (8.5-10.1) Magnesium Level 2.1 MG/DL (1.8-2.4) Total Bilirubin 0.3 MG/DL (0.2-1.0) Aspartate Amino Transf (AST/SGOT) 35 U/L (15-37) Alanine Aminotransferase (ALT/SGPT) 35 U/L (12-78) Alkaline Phosphatase 81 U/L (46-116) Troponin I 0.003 ng/mL (0.000-0.056) Pro-B-Type Natriuretic Peptide 291 pg/mL (0-125) H Total Protein 6.4 G/DL (6.4-8.2) Albumin 2.7 G/DL (3.4-5.0) L Globulin 3.7 g/dL Albumin/Globulin Ratio 0.7 (1.0-2.7) L Current Medications Medications (Trade) Dose Ordered Sig/Kala Route PRN Reason Start Time Stop Time Status Last Admin Dose Admin Atorvastatin Calcium (Lipitor) 10 mg BEDTIME ORAL 03/13/19 21:00 04/08/19 20:59 03/15/19 21:17 Clonidine HCl (Catapres Tab) 0.1 mg Q4H PRN ORAL For High Blood Pressure 03/12/19 22:00 04/08/19 21:59 Clopidogrel Bisulfate (Plavix) 75 mg DAILY ORAL 03/13/19 09:00 04/08/19 08:59 03/16/19 08:12 Furosemide (Lasix) 40 mg DAILY ORAL 03/13/19 09:00 04/10/19 08:59 03/16/19 08:11 Guaifenesin (Robitussin) 200 mg Q4H PRN ORAL For Cough 03/13/19 01:00 04/12/19 00:59 03/14/19 21:00 Heparin Sodium (Porcine) (Heparin 5000 units/ml) 5,000 units EVERY 12 HOURS SUBQ 03/13/19 09:00 04/08/19 08:59 03/16/19 08:14 Montelukast Sodium (Singulair) 10 mg QPM ORAL 03/13/19 16:30 04/08/19 16:29 03/15/19 17:01 Piperacillin Sod/ Tazobactam Sod 3.375 gm/Sodium Chloride 110 ml @ 27.5 mls/hr EVERY 8 HOURS IVPB 03/13/19 06:00 03/20/19 05:59 03/16/19 05:34 Pregabalin (Lyrica) 75 mg Q8HR ORAL 03/13/19 06:00 04/12/19 05:59 03/16/19 05:34 Tamsulosin HCl (Flomax) 0.4 mg DAILY ORAL 03/13/19 09:00 04/08/19 08:59 03/16/19 08:11 Temazepam (Restoril) 7.5 mg HSPRN PRN ORAL Insomnia 03/13/19 20:15 03/16/19 20:14 03/15/19 21:17 Piyush Berger MD Mar 16, 2019 11:00
--- NOTE | 2019-03-16 11:50 | NUR ---
NURSE NOTES: O2 sat on room air checked 85%, O2 sat on 1L 89%, O2 sat on 2L 96%. Will continue to monitor.
[2019-03-16 12:00] VITALS: BP 135/68
[2019-03-16 16:00] VITALS: BP 148/68
--- NOTE | 2019-03-16 16:15 | Progress Note ---
DATE: 03/16/2019 CARDIOLOGY PROGRESS NOTE SUBJECTIVE: at bedside. The patient continues to feel better. No shortness of breath. Still on oxygen saturations at 99% with 3 liters. OBJECTIVE: VITAL SIGNS: Blood pressure 118/76, heart rate 73, and respirations 17. No fevers. LUNGS: Still with rales at the right. HEART: Regular rhythm and rate. Normal S1, S2 with a fourth heart sound. A 1/6 systolic murmur at base. ABDOMEN: Soft. EXTREMITIES: No edema. LABORATORY DATA: Pro-natriuretic peptide is 291. Troponin negative. Albumin 2.7. BUN 19 and creatinine 1.1. Potassium 3.8. IMPRESSION: 1. Healthcare-acquired pneumonia. 2. Chronic interstitial lung disease. 3. Hypertensive heart disease. 4. Acute on chronic diastolic congestive heart failure, mostly compensated. 5. Hypoxia. 6. 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 7. Toxic and metabolic encephalopathies, resolved. PLAN: 1. We will try to taper off oxygen. Otherwise, he will need home O2. 2. Physical therapy assessment for discharge plan. 3. Antimicrobials per Infectious Disease legal consultant. 4. Consider oral therapy over the next 24 hours. 5. Continue current antihypertensives as they are adequate. 6. At this time, I would not increase diuresis further and continue current maintenance dose of furosemide. Luis Daniels M.D. DR: MIKALA JOB#: [id number] CC:
--- NOTE | 2019-03-16 16:34 | NUR ---
DISCHARGE PLANNING SPOKE WITH PATIENT'S DAUGHTERMUNIRA PATIENT LIVES AT HOME WITH HIS AND TWO DAUGHTERS FAMILY FEELS HE HAS ALL THE SUPPORT HE NEEDS AND THEY WANT HIM TO RETURN HOME PATIENT HAS BEEN REFERRED TO [facility] PER MD'S REQUEST
[2019-03-16] MEDS: Montelukast 10mg tablet ORAL SCH (17:01)
--- NOTE | 2019-03-16 18:00 | General Progress Note ---
Assessment/Plan Problem List: (1) Hospital acquired PNA ICD Codes: J18.9 - Pneumonia, unspecified organism; Y95 - Nosocomial condition SNOMED: 111955070 (2) CHF (congestive heart failure), NYHA class IV ICD Codes: I50.9 - Heart failure, unspecified SNOMED: 992224701, 998496742 (3) Sepsis ICD Codes: A41.9 - Sepsis, unspecified organism SNOMED: 20320907 (4) Respiratory distress ICD Codes: R06.03 - Acute respiratory distress SNOMED: 705514761 (5) Altered level of consciousness ICD Codes: R40.4 - Transient alteration of awareness SNOMED: 3927952 Status: stable, progressing Assessment/Plan: lasix held due to decreasing sodium repeat labs in am., reassess diuretic regime iv abx per id wean o2 may need home o2 d/w dtr d/w Subjective Constitutional: Reports: weakness HEENT: Reports: no symptoms Cardiovascular: Reports: no symptoms Respiratory: Reports: cough, sputum Gastrointestinal/Abdominal: Reports: no symptoms Genitourinary: Reports: no symptoms Neurologic/Psychiatric: Reports: no symptoms Endocrine: Reports: no symptoms Hematologic/Lymphatic: Reports: no symptoms Allergies: Coded Allergies: No Known Allergies (Unverified , 03/09/19) All Systems: reviewed and negative except above Subjective no overnight events. no new complaints. at the bedside. feels pt is doing better. cxr noted. NA trending down Objective Last 24 Hour Vital Signs Date Time Temp Pulse Resp B/P (MAP) Pulse Ox O2 Delivery O2 Flow Rate FiO2 03/16/19 16:00 97.4 69 17 148/68 (94) 99 03/16/19 16:00 67 03/16/19 12:00 97.4 72 17 135/68 (90) 98 03/16/19 12:00 68 03/16/19 12:00 Nasal Cannula 3.0 03/16/19 11:50 17 85 03/16/19 09:20 98 Nasal Cannula 2.0 28 03/16/19 09:20 70 18 98 Nasal Cannula 2.0 28 03/16/19 08:00 97.0 73 17 118/76 (90) 98 03/16/19 08:00 93 03/16/19 04:00 81 03/16/19 04:00 97.7 64 17 114/64 (81) 98 03/16/19 00:00 97.8 70 17 110/65 (80) 98 03/16/19 00:00 68 03/15/19 21:15 68 16 99 Nasal Cannula 3.0 32 03/15/19 20:40 99 Nasal Cannula 3.0 32 03/15/19 20:00 97.6 65 17 122/69 (86) 98 03/15/19 20:00 67 Intake and Output 03/15/19 03/16/19 18:59 06:59 Intake Total 1800 ml 260.0 ml Balance 1800 ml 260.0 ml Intake Oral 1800 ml 150 ml IV Total 110.0 ml # Voids 4 3 # Bowel Movements 1 Laboratory Tests 03/16/19 06:37: White Blood Count 7.2, Red Blood Count 4.43L, Hemoglobin 13.5L, Hematocrit 41.5L , Mean Corpuscular Volume 94, Mean Corpuscular Hemoglobin 30.6, Mean Corpuscular Hemoglobin Concent 32.6, Red Cell Distribution Width 13.2, Platelet Count 470H, Mean Platelet Volume 6.6, Neutrophils (%) (Auto) 58.7, Lymphocytes ( %) (Auto) 24.0, Monocytes (%) (Auto) 13.1H, Eosinophils (%) (Auto) 2.4, Basophils (%) (Auto) 1.8, Sodium Level 132L, Potassium Level 3.8, Chloride Level 102, Carbon Dioxide Level 32, Anion Gap -2L, Blood Urea Nitrogen 19H, Creatinine 1.1, Estimat Glomerular Filtration Rate , Glucose Level 97, Calcium Level 8.8, Magnesium Level 2.1, Total Bilirubin 0.3, Aspartate Amino Transf (AST /SGOT) 35, Alanine Aminotransferase (ALT/SGPT) 35, Alkaline Phosphatase 81, Troponin I 0.003, Pro-B-Type Natriuretic Peptide 291H, Total Protein 6.4, Albumin 2.7L, Globulin 3.7, Albumin/Globulin Ratio 0.7L Height (Feet): 5 Height (Inches): 8.00 Weight (Pounds): 147 Objective General Appearance: WD/WN, alert Neck: supple Cardiovascular: normal rate, regular rhythm Respiratory/Chest: chest wall non-tender, lungs clear, normal breath sounds, no respiratory distress, no accessory muscle use Abdomen: normal bowel sounds, non tender, soft, no organomegaly, no mass Edema: no edema noted Arm (L), no edema noted Arm (R), no edema noted Leg (L), no edema noted Leg (R), no edema noted Pedal (L), no edema noted Pedal (R), no edema noted Generalized 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
--- NOTE | 2019-03-16 19:30 | NUR ---
NURSE NOTES: Received patient from Lisa AGUSTIN. Patient on 2L NC, no s/s of respiratory distress. Patient is ambulatory. No c/o pain. Call light within reach.
--- NOTE | 2019-03-16 19:34 | NUR ---
HAND-OFF: Report given to NIKOLE Morales.
[2019-03-16 20:00] VITALS: BP 120/60
--- NOTE | 2019-03-16 20:52 | Cardiology Report ---
APPROVED REPORT EKG Measurement Heart [id number] MO [id number] Sinus tachycardia with premature atrial complexes with aberrant conduction Possible Left atrial enlargement Borderline ECG
--- NOTE | 2019-03-16 21:00 | NUR ---
NURSE NOTES: O2sat 92% on room air at rest in bed.
[2019-03-17] VITALS: BP 151/73
[2019-03-17 04:00] VITALS: BP 117/70
[2019-03-17] MEDS: Lyrica 75mg cap ORAL SCH ×2 (05:36→14:04)
[2019-03-17 06:58] LABS: ALANINE AMINOTRANSFERASE 32 U/L (12-78); ALBUMIN 2.6 G/DL (3.4-5.0); ALBUMIN/GLOBULIN RATIO 0.6 (1.0-2.7); ALKALINE PHOSPHATASE 76 U/L (46-116); ANION GAP 3 mmol/L (5-15); ASPARTATE AMINO TRANSFERASE 33 U/L (15-37); BILIRUBIN,TOTAL 0.3 MG/DL (0.2-1.0); BLOOD UREA NITROGEN 17 mg/dL (7-18); CALCIUM 9.1 MG/DL (8.5-10.1); CARBON DIOXIDE 33 MMOL/L (21-32); CHLORIDE 102 MMOL/L (98-107); CREATININE 1.2 MG/DL (0.55-1.30); POTASSIUM 3.4 MMOL/L (3.5-5.1); SODIUM 138 MMOL/L (136-145)
--- NOTE | 2019-03-17 07:39 | NUR ---
NURSE NOTES: Received report from NIKOLE Morales. The patient is resting on the bed without acute distress or shortness of breath. The patient's bed in the lowest position, call light in reach, and fall and aspiration precaution reinforced. IV site intact and patent. Will continue plan of care.
--- NOTE | 2019-03-17 07:51 | NUR ---
HAND-OFF: Report given to Melody Renae. Plan of care endorsed.
[2019-03-17 08:00] VITALS: BP 114/59
--- NOTE | 2019-03-17 08:27 | Pulmonology Progress Note ---
Assessment/Plan Assessment/Plan ASSESSMENT: hypertension, ho pneumonia hyperlipidemia, congestive heart failure exacerbation respiratory failure, acute toxic metabolic encephalopathy hypoxemia pleural calcifications PLAN care as is for now diurese oxygen low flow stable BIPAP -discontinued monitor acid base for change pending reevaluation repeat CXR - mostly chronic changes from prior dc planning per primary team aspiration precautions impression, plan, and exam edited and reviewed in detail care discussed with RN Subjective Allergies: Coded Allergies: No Known Allergies (Unverified , 03/09/19) Subjective comfortable on NC no distress at present awake nursing reviewed imaging and cultures reviewed Objective Last 24 Hour Vital Signs Date Time Temp Pulse Resp B/P (MAP) Pulse Ox O2 Delivery O2 Flow Rate FiO2 03/17/19 04:00 74 03/17/19 04:00 98.4 82 18 117/70 (86) 98 03/17/19 03:56 74 03/17/19 00:00 98.1 65 18 151/73 (99) 99 03/16/19 23:35 71 03/16/19 20:00 97.9 61 18 120/60 (80) 98 03/16/19 19:58 64 03/16/19 19:42 63 18 98 Nasal Cannula 3.0 32 03/16/19 19:41 98 Nasal Cannula 3.0 32 03/16/19 16:00 97.4 69 17 148/68 (94) 99 03/16/19 16:00 67 03/16/19 12:00 97.4 72 17 135/68 (90) 98 03/16/19 12:00 68 03/16/19 12:00 Nasal Cannula 3.0 03/16/19 11:50 17 85 03/16/19 09:20 98 Nasal Cannula 2.0 28 03/16/19 09:20 70 18 98 Nasal Cannula 2.0 28 Intake and Output 03/16/19 03/17/19 19:00 07:00 Intake Total 320 ml Balance 320 ml Intake Oral 320 ml # Voids 2 2 Objective WDWN NAD on oxygen reduced breath sounds bilaterally without rhonchi or wheeze [id number] without MRG NABS nontender no HSM no CCE nonfocal alert reviewed and edited Laboratory Tests 03/17/19 05:35: Sodium Level 138, Potassium Level 3.4L, Chloride Level 102, Carbon Dioxide Level 33H, Anion Gap 3L, Blood Urea Nitrogen 17, Creatinine 1.2, Estimat Glomerular Filtration Rate , Glucose Level 94, Calcium Level 9.1, Magnesium Level 2.2, Total Bilirubin 0.3, Aspartate Amino Transf (AST/SGOT) 33, Alanine Aminotransferase (ALT/SGPT) 32, Alkaline Phosphatase 76, Total Protein 6.8, Albumin 2.6L, Globulin 4.2, Albumin/Globulin Ratio 0.6L Current Medications Medications (Trade) Dose Ordered Sig/Kala Route PRN Reason Start Time Stop Time Status Last Admin Dose Admin Atorvastatin Calcium (Lipitor) 10 mg BEDTIME ORAL 03/13/19 21:00 04/08/19 20:59 03/16/19 21:57 Clonidine HCl (Catapres Tab) 0.1 mg Q4H PRN ORAL For High Blood Pressure 03/12/19 22:00 04/08/19 21:59 Clopidogrel Bisulfate (Plavix) 75 mg DAILY ORAL 03/13/19 09:00 04/08/19 08:59 03/16/19 08:12 Guaifenesin (Robitussin) 200 mg Q4H PRN ORAL For Cough 03/13/19 01:00 04/12/19 00:59 03/14/19 21:00 Heparin Sodium (Porcine) (Heparin 5000 units/ml) 5,000 units EVERY 12 HOURS SUBQ 03/13/19 09:00 04/08/19 08:59 03/16/19 22:07 Montelukast Sodium (Singulair) 10 mg QPM ORAL 03/13/19 16:30 04/08/19 16:29 03/16/19 17:01 Pregabalin (Lyrica) 75 mg Q8HR ORAL 03/13/19 06:00 04/12/19 05:59 03/17/19 05:36 Tamsulosin HCl (Flomax) 0.4 mg DAILY ORAL 03/13/19 09:00 04/08/19 08:59 03/16/19 08:11 Adrian Saleem MD Mar 17, 2019 08:27
--- NOTE | 2019-03-17 08:33 | NUR ---
NURSE NOTES: Notified Dr. Saleem regarding abnormal ABG result that was done on 03/15/2019. Will carry out the order as soon as receives it. Will continue plan of care.
--- NOTE | 2019-03-17 08:34 | NUR ---
NURSE NOTES: Notified Dr. Forrester regarding potassium level of 3.4. Will carry out the order as soon as receives it and will continue to monitor the patient.
[2019-03-17] MEDS ORDERED: Heparin 5000 units/ml inj SUBQ SCH (09:00)
--- NOTE | 2019-03-17 09:00 | NUR ---
PT EVALUATION NOTE Patient seen for initial evaluation, see complete evaluation for details. Prior to hospitalization patient was independent with all functional mobility without an assistive device. On evaluation patient demonstrates independent bed mobility, transfers and ambulation without an assistive device. Skilled inpatient PT intervention not indicated, patient discharged from PT. Patient cleared to ambulate in his room (due to contact isolation precautions), Melody AGUSTIN notified of patient's status at the end of the evaluation. Addendum: 03/17/19 at 1035 by ANIVAL ECHAVARRIA PT Amended: Links added.
[2019-03-17] MEDS: Tamsulosin 0.4mg cap ORAL SCH (09:17)
[2019-03-17] MEDS: Heparin 5000 units/ml inj SUBQ SCH (09:18)
--- NOTE | 2019-03-17 10:38 | NUR ---
NURSE NOTES: Notified 03/15 and 03/[address] Saleem. Per Dr. Saleem, no new order. Will continue to monitor the patient.
--- NOTE | 2019-03-17 10:56 | Infectious Diseases Prog Note ---
Assessment/Plan Assessment/Plan antibiotics : none A 1. aspiration pneumonia s/p rx 2. hypertension 3. CHF 4. rectal VRE colonization 5. leucocytosis resolved 6. renal failure improving P 1. continue off antibiotics 2. d.c planned Subjective Constitutional: Denies: fever, chills Respiratory: Denies: shortness of breath, dry cough Gastrointestinal/Abdominal: Denies: nausea, vomiting, diarrhea Musculoskeletal: Denies: pain Allergies: Coded Allergies: No Known Allergies (Unverified , 03/09/19) Objective Vital Signs Last 24 Hour Vital Signs Date Time Temp Pulse Resp B/P (MAP) Pulse Ox O2 Delivery O2 Flow Rate FiO2 03/17/19 09:00 Nasal Cannula 3.0 03/17/19 08:00 98.2 78 20 114/59 (77) 98 03/17/19 04:00 74 03/17/19 04:00 98.4 82 18 117/70 (86) 98 03/17/19 03:56 74 03/17/19 00:00 98.1 65 18 151/73 (99) 99 03/16/19 23:35 71 03/16/19 20:00 97.9 61 18 120/60 (80) 98 03/16/19 19:58 64 03/16/19 19:42 63 18 98 Nasal Cannula 3.0 32 03/16/19 19:41 98 Nasal Cannula 3.0 32 03/16/19 16:00 97.4 69 17 148/68 (94) 99 03/16/19 16:00 67 03/16/19 12:00 97.4 72 17 135/68 (90) 98 03/16/19 12:00 68 03/16/19 12:00 Nasal Cannula 3.0 03/16/19 11:50 17 85 Height (Feet): 5 Height (Inches): 8.00 Weight (Pounds): 147 Respiratory/Chest: lungs clear Cardiovascular: normal rate, regular rhythm, no gallop/murmur Abdomen: soft, non tender Extremities: no edema Laboratory Tests Test 03/17/19 05:35 03/17/19 08:55 Sodium Level 138 MMOL/L (136-145) Potassium Level 3.4 MMOL/L (3.5-5.1) L Chloride Level 102 MMOL/L (98-107) Carbon Dioxide Level 33 MMOL/L (21-32) H Anion Gap 3 mmol/L (5-15) L Blood Urea Nitrogen 17 mg/dL (7-18) Creatinine 1.2 MG/DL (0.55-1.30) Estimat Glomerular Filtration Rate mL/min (>60) Glucose Level 94 MG/DL (74-106) Calcium Level 9.1 MG/DL (8.5-10.1) Magnesium Level 2.2 MG/DL (1.8-2.4) Total Bilirubin 0.3 MG/DL (0.2-1.0) Aspartate Amino Transf (AST/SGOT) 33 U/L (15-37) Alanine Aminotransferase (ALT/SGPT) 32 U/L (12-78) Alkaline Phosphatase 76 U/L (46-116) Total Protein 6.8 G/DL (6.4-8.2) Albumin 2.6 G/DL (3.4-5.0) L Globulin 4.2 g/dL Albumin/Globulin Ratio 0.6 (1.0-2.7) L Arterial Blood pH 7.408 (7.350-7.450) Arterial Blood Partial Pressure CO2 54.4 mmHg (35.0-45.0) H Arterial Blood Partial Pressure O2 90.2 mmHg (75.0-100.0) Arterial Blood HCO3 33.6 mmol/L (22.0-26.0) H Arterial Blood Oxygen Saturation 95.9 % (95-100) Arterial Blood Base Excess 7.1 (-2-2) H Sharif Test Positive Current Medications Medications (Trade) Dose Ordered Sig/Kala Route PRN Reason Start Time Stop Time Status Last Admin Dose Admin Atorvastatin Calcium (Lipitor) 10 mg BEDTIME ORAL 03/13/19 21:00 04/08/19 20:59 03/16/19 21:57 Clonidine HCl (Catapres Tab) 0.1 mg Q4H PRN ORAL For High Blood Pressure 03/12/19 22:00 04/08/19 21:59 Clopidogrel Bisulfate (Plavix) 75 mg DAILY ORAL 03/13/19 09:00 04/08/19 08:59 03/17/19 09:17 Guaifenesin (Robitussin) 200 mg Q4H PRN ORAL For Cough 03/13/19 01:00 04/12/19 00:59 03/14/19 21:00 Heparin Sodium (Porcine) (Heparin 5000 units/ml) 5,000 units EVERY 12 HOURS SUBQ 03/13/19 09:00 04/08/19 08:59 03/17/19 09:18 Montelukast Sodium (Singulair) 10 mg QPM ORAL 03/13/19 16:30 04/08/19 16:29 03/16/19 17:01 Pregabalin (Lyrica) 75 mg Q8HR ORAL 03/13/19 06:00 04/12/19 05:59 03/17/19 05:36 Tamsulosin HCl (Flomax) 0.4 mg DAILY ORAL 03/13/19 09:00 04/08/19 08:59 03/17/19 09:17 Mena Mena MD Mar 17, 2019 10:56
--- NOTE | 2019-03-17 11:12 | NUR ---
NURSE NOTES: Walked with the patient without NC per order. The patient's O2 saturation dropped till 93% in room air. Applied NC again. The patient is stable without acute distress or shortness of breath.
[2019-03-17 12:00] VITALS: BP 125/69
--- NOTE | 2019-03-17 12:13 | NUR ---
DISCHARGE PLANNING DISCHARGE DISCUSSED WITH DR BRIGITTE DURBIN WITH [facility] ~ T:[phone] [facility] ~ T: [phone]
--- NOTE | 2019-03-17 13:30 | NUR ---
NURSE NOTES: Home oxygen delivered at the bedside. Teaching regarding the use of home oxygen completed by the specialist from [facility]. The patient and family member verbalized understanding. Will wait for Dr. Forrester's discharge order. Will continue plan of care.
--- NOTE | 2019-03-17 14:23 | NUR ---
NURSE NOTES: Informed Son arcenio, spouse and Simran, daughter regarding discharge order with home health and home oxygen. Home oxygen delivered to the patient bedside. Will continue plan of care.
--- NOTE | 2019-03-17 14:57 | NUR ---
NURSE NOTES: Dr. Forrester put the order for KCL 40mEq for potassium level of 3.4. Administered medication as prescribed. Carried out the discharge order. Will continue plan of care until family member arrives to take the patient.
--- NOTE | 2019-03-17 15:39 | NUR ---
NURSE NOTES: Notified Dr. Saleem regarding ABG level that was done today, and no new order. Dr. Forrester ordered KCL 40meq for potassium level of 3.4 this morning. Carried out the order. Dr. Forrester put discharge order with home health and home oxygen. Home oxygen arrived to the patient bedside by [facility] [place] specialist and teaching was given by the specialist. The patient's discharge order was notified to Simran, daughter and Son Tirso, the spouse. The patient was safely discharged with the spouse and daughter back to home with home health and home oxygen. Discharge instruction and teaching provided to the patient and spouse and verbalized understanding. Discharge instruction form signed by the patient. The patient does not have belongings and signed the form by the patient. IV, telebox, and name band removed by the nurse. The patient is discharge with the spouse and daughter in a safe manner with home oxygen and home health order.
--- NOTE | 2019-03-18 01:30 | Progress Note ---
DATE: 03/17/2019 CARDIOLOGY PROGRESS NOTE SUBJECTIVE: The patient without distress. Off antimicrobials. Tolerating oral intake. OBJECTIVE: VITAL SIGNS: Blood pressure 114/59, pulse 78, and respirations 20. LUNGS: Clear. CARDIAC: Regular. Normal S1, S2 with a 1/6 systolic murmur at the base. ABDOMEN: Soft. EXTREMITIES: No edema. LABORATORY DATA: Reviewed. IMPRESSION: 1. Interstitial lung disease with healthcare-acquired pneumonia, now improved. 2. Acute on chronic diastolic congestive heart failure, now clinically compensated. 3. Hypertensive heart disease with controlled blood pressure. 4. Hypoxia, on oxygen supplementation to be continued at home. 5. Encephalopathy, resolved. 6. Pleural calcification, chronic. PLAN: 1. Home O2. 2. Physical therapy on discharge. 3. Maintenance oral diuretic dose. 4. Continue current antihypertensive upon discharge. Luis Daniels M.D. DR: CHUNG JOB#: [id number] CC:
--- NOTE | 2019-03-18 01:45 | Discharge Summary ---
DATE OF ADMISSION: 03/09/2019 DATE OF DISCHARGE: 03/17/2019 ADMISSION DIAGNOSES: 1. Respiratory failure. 2. Congestive heart failure. 3. Pneumonia. 4. Hypertension. 5. History of neuropathy. DISCHARGE DIAGNOSES: 1. Respiratory failure. 2. Congestive heart failure. 3. Pneumonia. 4. Hypertension. 5. History of neuropathy. HOSPITAL COURSE: The patient was admitted with complaints of shortness of breath. He was initially placed on BiPAP because of respiratory failure. He was diuresed. He received intravenous antibiotics for possible pneumonia. He was gradually weaned off BiPAP. He was downgraded to a nasal cannula. He continued on antibiotic therapy and diuresis. On discharge, the patient had improved. He was offered a [facility] facility, but declined. He will be discharged home with home health. He has been instructed to follow up with his PMD in one week or to return for any worsening shortness of breath, fevers, chills, or chest pain. DIET: Cardiac diet. ACTIVITIES: Ad-aren. Luis Forrester M.D. DR: CHERYL JOB#: [id number] CC:
[2019-03-18] MEDS ORDERED: 1/2 NS 1000ml IV ONE (09:00)
== END 2019-03-17 15:23 | disposition home health service (06) | DRG 193 ==
LOC: EDBD 01:45 → EMR 02:00 → EDBEDREQ 02:53 → 2W 03:05 → EDBEDREQ 03:19 → 2E 03-12 21:49
PROC: 5A09457 Assistance with Respiratory Ventilation, 24-96 Consecutive Hours, Continuous Positive Airway Pressure (ICD-10-PCS; principal; 2019-03-09)
DX: J18.9 Pneumonia, unspecified organism (principal); J96.00 Acute respiratory failure, unspecified whether with hypoxia or hypercapnia; G92 Toxic encephalopathy; I50.33 Acute on chronic diastolic (congestive) heart failure; J96.01 Acute respiratory failure with hypoxia; J94.8 Other specified pleural conditions; J84.9 Interstitial pulmonary disease, unspecified; I11.0 Hypertensive heart disease with heart failure; E78.5 Hyperlipidemia, unspecified; M10.9 Gout, unspecified; I35.2 Nonrheumatic aortic (valve) stenosis with insufficiency; I34.0 Nonrheumatic mitral (valve) insufficiency; I36.1 Nonrheumatic tricuspid (valve) insufficiency; Y95 Nosocomial condition; I27.20 Pulmonary hypertension, unspecified; I51.3 Intracardiac thrombosis, not elsewhere classified
CPT/HCPCS: 36415; 36600; 70450; 71045; 80048; 80053; 80202; 81003; 82550; 82553; 82803; 83605; 83690; 83735; 83880; 84484; 85025; 85610; 85730; 87040; 87070; 87081; 87205; 93005; 93306; 94660; 94664; 96365; 96375; 99291; J8499